=== PATIENT | male | born 1960 | race Caucasian/White ===

== ENCOUNTER 2021-05-19 09:46 | Inpatient (IN) | payer MEDICAID ==
--- NOTE | 2021-05-19 11:10 | EDM.PDOC ---
ED HPI GENERAL MEDICAL PROBLEM - General Chief Complaint: Respiratory Problem Stated Complaint: [facility] Time Seen by Provider: 05/19/21 11:04 Source of Information: Reports: EMS, [facility] Records - History of Present Illness INITIAL COMMENTS - FREE TEXT/NARRATIVE: ptt is a resident at [facility] and has been covid positive since May 12. He has not been maintaining his o2 sats and was sent in for that reason. Onset: Gradual, Other (pt became covid positive May 12. ) Duration: Day(s): Location: Reports: Chest Associated Symptoms: Reports: Cough, Shortness of Breath, Other (low o2 sats. 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 - Related Data Allergies Allergy/AdvReac Type Severity Reaction Status Date / Time No Known Allergies Allergy Verified 05/19/21 10:11 Home Meds: Home Meds Acetaminophen 650 mg PO Q4H PRN 05/19/21 [History] Baclofen 10 mg PO BEDTIME 05/19/21 [History] Gabapentin [Neurontin] 100 mg PO TID 05/19/21 [History] Loperamide [Imodium] 2 mg PO Q6H PRN 05/19/21 [History] Zinc Oxide [Zinc Oxide 20% Oint] 1 applic TOP ASDIRECTED PRN 05/19/21 [History] Past Medical History Cardiovascular History: Reports: CAD, High Cholesterol, Hypertension, [place] Gastrointestinal History: Reports: Other (See Below) Other Gastrointestinal History: Cryptosporidiosis Musculoskeletal History: Reports: Arthritis, Back Pain, Chronic, RA Neurological History: Reports: CVA Psychiatric History: Reports: Anxiety, Depression Social & Family History - Tobacco Use Tobacco Use Status *Q: Former Tobacco User Used Tobacco, but Quit: Yes Month/Year Tobacco Last Used: unknown - Caffeine Use Caffeine Use: Reports: None - Recreational Drug Use Recreational Drug Use: No ED ROS GENERAL - Review of Systems Review Of Systems: See Below Constitutional: Reports: Fever, Chills HEENT: Reports: No Symptoms Respiratory: Reports: Shortness of Breath, Other (lowo2 sats. ) Cardiovascular: Reports: No Symptoms Endocrine: Reports: No Symptoms GI/Abdominal: Reports: No Symptoms : Reports: No Symptoms Musculoskeletal: Reports: No Symptoms ED EXAM, GENERAL - Physical Exam Exam: See Below Free Text/Narrative:: pt was sent from [facility] and they had noted that he was not maintaining his o2 sats. He had a positive covid on May 12. He was seen by the physian that makes rounds but no treatment has been given. He has not had the monoclonal therapy. Exam Limited By: Other (pt does not communicate well-- he is post cva.) General Appearance: Alert, Anxious, Mild Distress Ears: Normal TMs Nose: Normal Inspection Throat/Mouth: Normal Inspection Head: Atraumatic Neck: Normal Inspection Respiratory/Chest: No Respiratory Distress Cardiovascular: Regular Rate, Rhythm GI/Abdominal: Soft, Non-Tender (Male) Exam: Deferred Rectal (Males) Exam: Deferred Back Exam: Normal Inspection Extremities: Normal Inspection Neurological: Alert, Other (pt does not communicate well. ) Course - Vital Signs Last Recorded V/S: Last Vital Signs Temp 37.7 C 05/19/21 10:23 Pulse 80 05/19/21 11:45 Resp 18 05/19/21 10:23 BP 143/89 H 05/19/21 11:45 Pulse Ox 93 L 05/19/21 11:45 - Orders/Labs/Meds Orders: Active Orders 24 hr Category Date Time Status DD [D-DIMER QUANTITATIVE] [COAG] Stat Lab 05/19/21 11:46 Received UA W/MICROSCOPIC [URIN] Urgent Lab 05/19/21 10:49 Ordered Labs: Laboratory Tests 05/19/21 05/19/21 05/19/21 Range/Units 11:07 11:07 11:46 WBC 5.0 (4.5-11.0) K/uL RBC 4.92 (4.30-5.90) M/uL Hgb 11.9 L (12.0-15.0) g/dL Hct 37.7 L (40.0-54.0) % MCV 77 L (80-98) fL MCH 24 L (27-31) pg MCHC 32 (32-36) % Plt Count 164 (150-400) K/uL Neut % (Auto) 74.8 H (36-66) % Lymph % (Auto) 13.4 L (24-44) % Towner % (Auto) 11.6 H (2-6) % Eos % (Auto) 0.0 L (2-4) % Baso % (Auto) 0.2 (0-1) % Sodium 137 L (140-148) mmol/L Potassium 4.0 (3.6-5.2) mmol/L Chloride 102 (100-108) mmol/L Carbon Dioxide 21 (21-32) mmol/L Anion Gap 18.0 H (5.0-14.0) mmol/L BUN 26 H (7-18) mg/dL Creatinine 0.9 (0.8-1.3) mg/dL Est Cr Clr Drug Dosing 82.95 mL/min Estimated GFR (MDRD) > 60 (>60) Glucose 101 (74-106) mg/dL Calcium 8.1 L (8.5-10.1) mg/dL Total Bilirubin 0.3 (0.2-1.0) mg/dL AST 91 H (15-37) U/L ALT 66 (12-78) U/L Alkaline Phosphatase 65 (46-116) U/L C-Reactive Protein 17.63 H (0.0-0.3) mg/dL Total Protein 7.2 (6.4-8.2) g/dL Albumin 2.1 L (3.4-5.0) g/dL Globulin 5.1 H (2.3-3.5) g/dL Albumin/Globulin Ratio 0.4 L (1.2-2.2) - Re-Assessments/Exams Free Text/Narrative Re-Assessment/Exam: 05/19/21 12:20 pt has a ddimer over 2000 and his crp is over 17. His other labs look good. Pt is requiring 2-3 liters of o2 to maintain his sats in the low 90s. Will plan to admit the pt. Departure - Departure Time of Disposition: 12:22 Disposition: Admitted As Inpatient 65 Condition: Fair Clinical Impression: COVID-19, Viral pneumonia, Low O2 saturation - Discharge Information Referrals: PCP,None [Primary Care Provider] - Forms: ED Department Discharge Sepsis Event Note (ED) - Evaluation Sepsis Screening Result: No Definite Risk - Focused Exam Vital Signs: Vital Signs Temp Pulse Resp BP Pulse Ox 05/19/21 11:45 80 143/89 H 93 L 05/19/21 11:15 85 145/92 H 89 L 05/19/21 10:30 85 92 L 05/19/21 10:23 37.7 C 80 18 139/86 87 L 05/19/21 09:46 89 18 142/86 H 90 L - My Orders Last 24 Hours: My Active Orders 05/19/21 10:49 UA W/MICROSCOPIC [URIN] Urgent 05/19/21 11:46 DD [D-DIMER QUANTITATIVE] [COAG] Stat - Assessment/Plan Last 24 Hours: My Active Orders 05/19/21 10:49 UA W/MICROSCOPIC [URIN] Urgent 05/19/21 11:46 DD [D-DIMER QUANTITATIVE] [COAG] Stat
--- NOTE | 2021-05-19 11:43 | CRLCR ---
For Patients: As a result of the Cures Act, medical imaging exams and procedure reports are released immediately into your electronic medical record. You may view this report before your referring provider. If you have questions, please contact your health care provider. HISTORY: COVID positive. TECHNIQUE: One view chest. COMPARISON: No prior. FINDINGS: There are patchy bilateral lung infiltrates compatible with pneumonia and fairly typical COVID-19 pneumonia. There is no pneumothorax or pleural effusion. Cardiac size within normal limits. Pulmonary vasculature within normal limits. Degenerative changes of the spine. IMPRESSION: Bilateral lung infiltrates which appear typical for COVID-19 pneumonia. Dictated by Steven Rodriguez MD @ 05/19/2021 11:41:28 AM Dictated by: Steven Rodriguez MD @ 05/19/2021 11:41:34 (Electronically Signed)
--- NOTE | 2021-05-19 14:19 | PCM.HP.2 ---
H&P History of Present Illness - General Date of Service: 05/19/21 Admit Problem/Dx: Admission Diagnosis/Problem Admission Diagnosis/Problem Pneumonia Source of Information: Patient, Provider History Limitations: Reports: No Limitations - History of Present Illness Initial Comments - Free Text/Narative: CC: covid + HPI: Garcia presents to the emergency room today from [facility]. He was diagnosed with a Covid infection few days ago on May 12. He was noted to be hypoxic today. He has been declining to take his medications the last few days. During my evaluation today we were able to communicate mostly via yes and no questions though he was able to provide some oral answers. He does not endorse headache, chest pain, abdominal pain or nausea. He feels a little short of breath and has an occasional cough. He does not think he has had any fevers. He is not aware of any sick contacts. No history of lung problems. No change in bowel or bladder habits. No sore throat or runny nose. No change in taste or smell that he has noticed. Work-up in the emergency room was most notable for mild hypoxia requiring 2 L of supplemental oxygen. Chest x-ray had only mild patchy changes. D-dimer is over 2000 and CRP was 17. Given his hypoxia he will be admitted for further management of Covid pneumonia. - Related Data Allergies/Adverse Reactions: Allergies Allergy/AdvReac Type Severity Reaction Status Date / Time No Known Allergies Allergy Verified 05/19/21 10:11 Home Medications: Home Meds Acetaminophen 650 mg PO Q4H PRN 05/19/21 [History] Baclofen 10 mg PO BEDTIME 05/19/21 [History] Gabapentin [Neurontin] 100 mg PO TID 05/19/21 [History] Loperamide [Imodium] 2 mg PO Q6H PRN 05/19/21 [History] Zinc Oxide [Zinc Oxide 20% Oint] 1 applic TOP ASDIRECTED PRN 05/19/21 [History] Past Medical History Cardiovascular History: Reports: CAD, High Cholesterol, Hypertension, [place] Gastrointestinal History: Reports: Other (See Below) Other Gastrointestinal History: Cryptosporidiosis Musculoskeletal History: Reports: Arthritis, Back Pain, Chronic, RA Neurological History: Reports: CVA Psychiatric History: Reports: Anxiety, Depression Social & Family History - Family History Cardiac: Denies: CAD - Tobacco Use Tobacco Use Status *Q: Former Tobacco User Used Tobacco, but Quit: Yes Month/Year Tobacco Last Used: unknown - Caffeine Use Caffeine Use: Reports: None - Recreational Drug Use Recreational Drug Use: No H&P Review of Systems - Review of Systems: Review Of Systems: See Below Free Text/Narrative: A complete 12 point review of systems was obtained. Pertinent positives and negatives are noted in the history of present illness. All other systems were reviewed and were negative except as noted. Exam - Exam Exam: See Below - Vital Signs Vital Signs: Last Vital Signs Temp 37.7 C 05/19/21 10:23 Pulse 80 05/19/21 11:45 Resp 18 05/19/21 10:23 BP 143/89 H 05/19/21 11:45 Pulse Ox 93 L 05/19/21 11:45 Weight: 68.039 kg - Exam Quality Assessment: Supplemental Oxygen General: Alert, Oriented, Cooperative. No: Mild Distress HEENT: Conjunctiva Clear, Scleral Icterus. No: Mucosa Moist & [place] (dry) Neck: Supple, Trachea Midline. No: Lymphadenopathy Lungs: Normal Respiratory Effort, Crackles (mild both lung bases), Wheezing (mild diffuse mid to end exp wheezing L>R) Cardiovascular: Regular Rate, Regular Rhythm. No: Systolic Murmur GI/Abdominal Exam: Normal Bowel Sounds, Soft, Non-Tender, No Distention Extremities: No Pedal Edema. No: Increased Warmth Peripheral Pulses: 2+: Dorsalis Pedis (L), Dorsalis Pedis (R) Skin: Warm, Dry Neuro Extensive - Mental Status: Alert, Nl Response to Commands Neuro Extensive - Motor, Sensory, Reflexes: Dysarthria. No: Tremor Psychiatric: Alert, Normal Affect - Patient Data Lab Results Last 24 hrs: Laboratory Results - last 24 hr 05/19/21 05/19/21 05/19/21 Range/Units 11:07 11:07 11:46 WBC 5.0 (4.5-11.0) K/uL RBC 4.92 (4.30-5.90) M/uL Hgb 11.9 L (12.0-15.0) g/dL Hct 37.7 L (40.0-54.0) % MCV 77 L (80-98) fL MCH 24 L (27-31) pg MCHC 32 (32-36) % Plt Count 164 (150-400) K/uL Neut % (Auto) 74.8 H (36-66) % Lymph % (Auto) 13.4 L (24-44) % Worth % (Auto) 11.6 H (2-6) % Eos % (Auto) 0.0 L (2-4) % Baso % (Auto) 0.2 (0-1) % D-Dimer, Quantitative (0.0-500.0) ng/mL Sodium 137 L (140-148) mmol/L Potassium 4.0 (3.6-5.2) mmol/L Chloride 102 (100-108) mmol/L Carbon Dioxide 21 (21-32) mmol/L Anion Gap 18.0 H (5.0-14.0) mmol/L BUN 26 H (7-18) mg/dL Creatinine 0.9 (0.8-1.3) mg/dL Est Cr Clr Drug Dosing 82.95 mL/min Estimated GFR (MDRD) > 60 (>60) Glucose 101 (74-106) mg/dL Calcium 8.1 L (8.5-10.1) mg/dL Total Bilirubin 0.3 (0.2-1.0) mg/dL AST 91 H (15-37) U/L ALT 66 (12-78) U/L Alkaline Phosphatase 65 (46-116) U/L C-Reactive Protein 17.63 H (0.0-0.3) mg/dL Total Protein 7.2 (6.4-8.2) g/dL Albumin 2.1 L (3.4-5.0) g/dL Globulin 5.1 H (2.3-3.5) g/dL Albumin/Globulin Ratio 0.4 L (1.2-2.2) 05/19/21 Range/Units 11:46 WBC (4.5-11.0) K/uL RBC (4.30-5.90) M/uL Hgb (12.0-15.0) g/dL Hct (40.0-54.0) % MCV (80-98) fL MCH (27-31) pg MCHC (32-36) % Plt Count (150-400) K/uL Neut % (Auto) (36-66) % Lymph % (Auto) (24-44) % Worth % (Auto) (2-6) % Eos % (Auto) (2-4) % Baso % (Auto) (0-1) % D-Dimer, Quantitative 2105.86 H (0.0-500.0) ng/mL Sodium (140-148) mmol/L Potassium (3.6-5.2) mmol/L Chloride (100-108) mmol/L Carbon Dioxide (21-32) mmol/L Anion Gap (5.0-14.0) mmol/L BUN (7-18) mg/dL Creatinine (0.8-1.3) mg/dL Est Cr Clr Drug Dosing mL/min Estimated GFR (MDRD) (>60) Glucose (74-106) mg/dL Calcium (8.5-10.1) mg/dL Total Bilirubin (0.2-1.0) mg/dL AST (15-37) U/L ALT (12-78) U/L Alkaline Phosphatase (46-116) U/L C-Reactive Protein (0.0-0.3) mg/dL Total Protein (6.4-8.2) g/dL Albumin (3.4-5.0) g/dL Globulin (2.3-3.5) g/dL Albumin/Globulin Ratio (1.2-2.2) Result Diagrams: 05/19/21 11:07 05/19/21 11:07 Imaging Impressions Last 24 hrs: cxr-image personally reviewed-there are hazy bilateral patchy infiltrates L>R. Heart size is normal. No mass or effusion. Sepsis Event Note - Evaluation Sepsis Screening Result: No Definite Risk - Focused Exam Vital Signs: Vital Signs Temp Pulse Resp BP Pulse Ox 05/19/21 11:45 80 143/89 H 93 L 05/19/21 11:15 85 145/92 H 89 L 05/19/21 10:30 85 92 L 05/19/21 10:23 37.7 C 80 18 139/86 87 L 05/19/21 09:46 89 18 142/86 H 90 L *Q Meaningful Use (ADM) - VTE Risk Assess *Q Each Risk Factor Represents 1 Point: Serious lung disease including pneumonia Total Score 1 Point Risk Factors: 1 Each Risk Factor Represents 2 Points: Age 60 - 74 Years Total Score 2 Point Risk Factors: 2 Each Risk Factor Represents 3 Points: None Total Score 3 Point Risk Factors: 0 Each Risk Factor Represents 5 Points: None Total Score 5 Point Risk Factors: 0 Venous Thromboembolism Risk Factor Score *Q: 3 - Problem List (1) COVID-19 SNOMED Code(s): 233864061 ICD Code: U07.1 - COVID-19 Status: Acute Current Visit: Yes (2) Acute respiratory failure due to COVID-19 SNOMED Code(s): 858695894 ICD Code: U07.1 - COVID-19; J96.00 - ACUTE RESPIRATORY FAILURE, UNSP W HYPOXIA OR HYPERCAPNIA Status: Acute Current Visit: Yes (3) History of CVA (cerebrovascular accident) without residual deficits Status: Chronic Current Visit: Yes Problem List Initiated/Reviewed/Updated: Yes Orders Last 24hrs: Active Orders 24 hr Category Date Time Status Patient Status Manage Transfer [TRANSFER] Routine ADT 05/19/21 14:11 Ordered UA W/MICROSCOPIC [URIN] Urgent Lab 05/19/21 10:49 Ordered dexAMETHasone [Decadron] Med 05/19/21 14:15 Active 6 mg IVPUSH Q24H Resuscitation Status Routine Resus Stat 05/19/21 14:12 Ordered Medication Orders Dexamethasone (Dexamethasone 4 Mg/Ml Sdv) 6 mg IVPUSH Q24H TRAVIS Assessment/Plan Comment:: ASSESSMENT AND PLAN - COVID-19 pneumonia-complicated by acute respiratory failure with hypoxia. Moderate elevation of D-dimer and CRP. Currently requiring 2 L of oxygen. He is a former smoker but otherwise does not have impressive risk factors for progression to severe disease. He was agreeable to utilizing both dexamethasone and remdesivir. Currently afebrile. -Dexamethasone 6 mg every 24 hours (day1) -Remdesivir x5 days -Enoxaparin every 24 hours -Symptomatic management of cough -Supplement oxygen, wean as able -Covid isolation (symptom onset/positive test ) History of cerebrovascular disease-history of a stroke that was quite debilitating and left hip with speech difficulties. He has been a resident at the assisted living since his stroke. -Medical management Maintenance issues - -DVT prophylaxis-enoxaparin -GI prophylaxis-PPI -Nutrition-mechanical soft -Fortune catheter-not indicated CODE STATUS -DNR/DNI Admission justification -this patient will be admitted for inpatient services and is medically appropriate meeting medical necessity for inpatient admission as outlined in my documentation. I reasonably expect the patient will require inpatient services that span a period time over 2 midnights. I reasonably expect this patient to be discharged or transferred within 96 hours after admission to the [facility]. Disposition -I anticipate discharge home after the hospital stay Jason Franklin M.D. - Mortality Measure Prognosis:: Good
[2021-05-19] MEDS ORDERED: Melatonin 3 MG Tab PO PRN (15:46)
[2021-05-19] MEDS ORDERED: LORazepam 2 MG/ML SDV IVPUSH PRN (15:46)
[2021-05-19] MEDS ORDERED: guaiFENesin/Dextromethorphan 100-10 MG/5 ML Soln 10 ML Cup PO PRN (15:46)
[2021-05-19] MEDS ORDERED: Ondansetron 4 MG Tab.DIS PO PRN (15:46)
[2021-05-19] MEDS ORDERED: Magnesium Hydroxide 400 MG/5 ML Susp 30 ML Cup PO PRN (15:46)
[2021-05-19] MEDS ORDERED: Loperamide 2 MG Cap PO PRN (15:46)
[2021-05-19] MEDS ORDERED: Acetaminophen 325 MG Tab PO PRN (15:46)
[2021-05-19] MEDS ORDERED: Benzonatate 100 MG Cap PO PRN (15:46)
[2021-05-19] MEDS ORDERED: Ondansetron 4 MG/2 ML SDV IV PRN (15:46)
[2021-05-19] MEDS: Dexamethasone 4 MG/ML SDV IVPUSH SCH (16:08)
[2021-05-19] MEDS ORDERED: REMDESIVIR 200 MG in Sodium Chloride 0.9% 250 ML IV ONE (17:00)
[2021-05-19] MEDS: Enoxaparin 40 MG/0.4 ML Syringe SUBCUT SCH ×2 (18:21→18:24)
[2021-05-19] MEDS: Gabapentin 100 MG Cap PO SCH (20:48)
[2021-05-19] MEDS: Baclofen 10 MG Tab PO SCH (20:48)
[2021-05-20] MEDS: Gabapentin 100 MG Cap PO SCH ×3 (09:21→20:18)
[2021-05-20] MEDS: Pantoprazole 40 MG Tab.CR PO SCH (09:21)
--- NOTE | 2021-05-20 10:51 | PCM.PN ---
- General Info Date of Service: 05/20/21 Subjective Update: No acute events overnight. Oxygenation is stable and he does continue to require 3 L of supplemental oxygen. He was declining to take medications last night and again this morning including enoxaparin. Does not report pain. He reports his cough is fairly minimal. Appetite is okay. No fevers. Functional Status: Reports: Pain Controlled, Tolerating Diet - Patient Data Vitals - Most Recent: Last Vital Signs Temp 36.6 C 05/20/21 07:29 Pulse 73 05/20/21 07:29 Resp 18 05/20/21 07:29 BP 132/88 05/20/21 07:29 Pulse Ox 92 L 05/20/21 07:29 Weight - Most Recent: 68.039 kg I&O - Last 24 Hours: Intake & Output 05/19/21 05/20/21 05/20/21 22:59 06:59 14:59 Intake Total 240 Balance 240 Lab Results Last 24 Hours: Laboratory Results - last 24 hr 05/19/21 05/19/21 05/19/21 Range/Units 11:07 11:07 11:46 WBC 5.0 (4.5-11.0) K/uL RBC 4.92 (4.30-5.90) M/uL Hgb 11.9 L (12.0-15.0) g/dL Hct 37.7 L (40.0-54.0) % MCV 77 L (80-98) fL MCH 24 L (27-31) pg MCHC 32 (32-36) % Plt Count 164 (150-400) K/uL Neut % (Auto) 74.8 H (36-66) % Lymph % (Auto) 13.4 L (24-44) % [place] % (Auto) 11.6 H (2-6) % Eos % (Auto) 0.0 L (2-4) % Baso % (Auto) 0.2 (0-1) % D-Dimer, Quantitative (0.0-500.0) ng/mL Sodium 137 L (140-148) mmol/L Potassium 4.0 (3.6-5.2) mmol/L Chloride 102 (100-108) mmol/L Carbon Dioxide 21 (21-32) mmol/L Anion Gap 18.0 H (5.0-14.0) mmol/L BUN 26 H (7-18) mg/dL Creatinine 0.9 (0.8-1.3) mg/dL Est Cr Clr Drug Dosing 82.95 mL/min Estimated GFR (MDRD) > 60 (>60) Glucose 101 (74-106) mg/dL Calcium 8.1 L (8.5-10.1) mg/dL Total Bilirubin 0.3 (0.2-1.0) mg/dL AST 91 H (15-37) U/L ALT 66 (12-78) U/L Alkaline Phosphatase 65 (46-116) U/L Troponin I (0.000-0.056) ng/mL C-Reactive Protein 17.63 H (0.0-0.3) mg/dL Total Protein 7.2 (6.4-8.2) g/dL Albumin 2.1 L (3.4-5.0) g/dL Globulin 5.1 H (2.3-3.5) g/dL Albumin/Globulin Ratio 0.4 L (1.2-2.2) 05/19/21 05/20/21 05/20/21 Range/Units 11:46 04:20 04:20 WBC 3.9 L (4.5-11.0) K/uL RBC 5.59 (4.30-5.90) M/uL Hgb 13.7 (12.0-15.0) g/dL Hct 43.3 (40.0-54.0) % MCV 78 L (80-98) fL MCH 25 L (27-31) pg MCHC 32 (32-36) % Plt Count 191 (150-400) K/uL Neut % (Auto) (36-66) % Lymph % (Auto) (24-44) % [place] % (Auto) (2-6) % Eos % (Auto) (2-4) % Baso % (Auto) (0-1) % D-Dimer, Quantitative 2105.86 H (0.0-500.0) ng/mL Sodium 140 (140-148) mmol/L Potassium 4.8 (3.6-5.2) mmol/L Chloride 104 (100-108) mmol/L Carbon Dioxide 21 (21-32) mmol/L Anion Gap 14.8 H (5.0-14.0) mmol/L BUN 29 H (7-18) mg/dL Creatinine 1.0 (0.8-1.3) mg/dL Est Cr Clr Drug Dosing 74.65 mL/min Estimated GFR (MDRD) > 60 (>60) Glucose 123 H (74-106) mg/dL Calcium 8.7 (8.5-10.1) mg/dL Total Bilirubin 0.3 (0.2-1.0) mg/dL AST 105 H (15-37) U/L ALT 84 H (12-78) U/L Alkaline Phosphatase 82 (46-116) U/L Troponin I < 0.017 (0.000-0.056) ng/mL C-Reactive Protein (0.0-0.3) mg/dL Total Protein 7.4 (6.4-8.2) g/dL Albumin 2.2 L (3.4-5.0) g/dL Globulin 5.2 H (2.3-3.5) g/dL Albumin/Globulin Ratio 0.4 L (1.2-2.2) Med Orders - Current: Current Medications Acetaminophen (Acetaminophen 325 Mg Tab) 650 mg PO Q4H PRN PRN Reason: Pain (Mild 1-3)/fever Baclofen (Baclofen 10 Mg Tab) 10 mg PO BEDTIME [facility] Last Admin: 05/19/21 20:48 Dose: Not Given Documented by: Benzonatate (Benzonatate 100 Mg Cap) 100 mg PO TID PRN PRN Reason: Cough Dexamethasone (Dexamethasone 4 Mg/Ml Sdv) 6 mg IVPUSH Q24H [facility] Last Admin: 05/19/21 16:08 Dose: 6 mg Documented by: Enoxaparin Sodium (Enoxaparin 40 Mg/0.4 Ml Syringe) 40 mg SUBCUT Q24H [facility] Last Admin: 05/19/21 18:24 Dose: Not Given Documented by: Gabapentin (Gabapentin 100 Mg Cap) 100 mg PO TID [facility] Last Admin: 05/20/21 09:21 Dose: Not Given Documented by: Guaifenesin/Dextromethorphan (Guaifenesin/Dextromethorphan 100-10 Mg/5 Ml Soln 10 Ml Cup) 10 ml PO Q4H PRN PRN Reason: Cough Remdesivir 100 mg/ Sodium (Chloride) 100 mls @ 100 mls/hr IV Q24H [facility] Stop: 05/23/21 17:59 Loperamide HCl (Loperamide 2 Mg Cap) 2 mg PO Q6H PRN PRN Reason: Diarrhea Lorazepam (Lorazepam 2 Mg/Ml Sdv) 0.5 mg IVPUSH Q4H PRN PRN Reason: Nausea/Vomiting Magnesium Hydroxide (Magnesium Hydroxide 400 Mg/5 Ml Susp 30 Ml Cup) 30 ml PO Q12H PRN PRN Reason: Constipation Melatonin (Melatonin 3 Mg Tab) 9 mg PO BEDTIME PRN PRN Reason: Sleep Ondansetron HCl (Ondansetron 4 Mg/2 Ml Sdv) 4 mg IV Q6H PRN PRN Reason: Nausea/Vomiting Ondansetron HCl (Ondansetron 4 Mg Tab.Dis) 4 mg PO Q6H PRN PRN Reason: Nausea able to take PO Pantoprazole Sodium (Pantoprazole 40 Mg Tab.Cr) 40 mg PO ACBREAKFAST [facility] Last Admin: 05/20/21 09:21 Dose: Not Given Documented by: Senna/Docusate Sodium (Docusate Sodium/Sennosides 50-8.6 Mg Tab) 1 tab PO BID PRN PRN Reason: Constipation Discontinued Medications Remdesivir 200 mg/ Sodium (Chloride) 250 mls @ 250 mls/hr IV ONETIME ONE Stop: 05/19/21 17:59 Last Admin: 05/19/21 18:21 Dose: 250 mls/hr Documented by: - Exam Quality Assessment: Supplemental Oxygen General: Alert, Cooperative, No Acute Distress Lungs: Normal Respiratory Effort, Crackles (few both bases) Cardiovascular: Regular Rate, Regular Rhythm - Patient Data Lab Results Last 24 hrs: Laboratory Results - last 24 hr 05/19/21 05/19/21 05/19/21 Range/Units 11:07 11:07 11:46 WBC 5.0 (4.5-11.0) K/uL RBC 4.92 (4.30-5.90) M/uL Hgb 11.9 L (12.0-15.0) g/dL Hct 37.7 L (40.0-54.0) % MCV 77 L (80-98) fL MCH 24 L (27-31) pg MCHC 32 (32-36) % Plt Count 164 (150-400) K/uL Neut % (Auto) 74.8 H (36-66) % Lymph % (Auto) 13.4 L (24-44) % [place] % (Auto) 11.6 H (2-6) % Eos % (Auto) 0.0 L (2-4) % Baso % (Auto) 0.2 (0-1) % D-Dimer, Quantitative (0.0-500.0) ng/mL Sodium 137 L (140-148) mmol/L Potassium 4.0 (3.6-5.2) mmol/L Chloride 102 (100-108) mmol/L Carbon Dioxide 21 (21-32) mmol/L Anion Gap 18.0 H (5.0-14.0) mmol/L BUN 26 H (7-18) mg/dL Creatinine 0.9 (0.8-1.3) mg/dL Est Cr Clr Drug Dosing 82.95 mL/min Estimated GFR (MDRD) > 60 (>60) Glucose 101 (74-106) mg/dL Calcium 8.1 L (8.5-10.1) mg/dL Total Bilirubin 0.3 (0.2-1.0) mg/dL AST 91 H (15-37) U/L ALT 66 (12-78) U/L Alkaline Phosphatase 65 (46-116) U/L Troponin I (0.000-0.056) ng/mL C-Reactive Protein 17.63 H (0.0-0.3) mg/dL Total Protein 7.2 (6.4-8.2) g/dL Albumin 2.1 L (3.4-5.0) g/dL Globulin 5.1 H (2.3-3.5) g/dL Albumin/Globulin Ratio 0.4 L (1.2-2.2) 05/19/21 05/20/21 05/20/21 Range/Units 11:46 04:20 04:20 WBC 3.9 L (4.5-11.0) K/uL RBC 5.59 (4.30-5.90) M/uL Hgb 13.7 (12.0-15.0) g/dL Hct 43.3 (40.0-54.0) % MCV 78 L (80-98) fL MCH 25 L (27-31) pg MCHC 32 (32-36) % Plt Count 191 (150-400) K/uL Neut % (Auto) (36-66) % Lymph % (Auto) (24-44) % [place] % (Auto) (2-6) % Eos % (Auto) (2-4) % Baso % (Auto) (0-1) % D-Dimer, Quantitative 2105.86 H (0.0-500.0) ng/mL Sodium 140 (140-148) mmol/L Potassium 4.8 (3.6-5.2) mmol/L Chloride 104 (100-108) mmol/L Carbon Dioxide 21 (21-32) mmol/L Anion Gap 14.8 H (5.0-14.0) mmol/L BUN 29 H (7-18) mg/dL Creatinine 1.0 (0.8-1.3) mg/dL Est Cr Clr Drug Dosing 74.65 mL/min Estimated GFR (MDRD) > 60 (>60) Glucose 123 H (74-106) mg/dL Calcium 8.7 (8.5-10.1) mg/dL Total Bilirubin 0.3 (0.2-1.0) mg/dL AST 105 H (15-37) U/L ALT 84 H (12-78) U/L Alkaline Phosphatase 82 (46-116) U/L Troponin I < 0.017 (0.000-0.056) ng/mL C-Reactive Protein (0.0-0.3) mg/dL Total Protein 7.4 (6.4-8.2) g/dL Albumin 2.2 L (3.4-5.0) g/dL Globulin 5.2 H (2.3-3.5) g/dL Albumin/Globulin Ratio 0.4 L (1.2-2.2) Result Diagrams: 05/20/21 04:20 05/20/21 04:20 Sepsis Event Note - Evaluation Sepsis Screening Result: No Definite Risk - Focused Exam Vital Signs: Vital Signs Temp Pulse Resp BP Pulse Ox 05/20/21 07:29 36.6 C 73 18 132/88 92 L 05/20/21 07:22 94 L 05/20/21 03:00 36.6 C 67 18 124/89 91 L 05/20/21 01:30 90 L 05/19/21 23:00 36.5 C 66 16 131/85 95 - Problem List & Annotations (1) COVID-19 SNOMED Code(s): 284308951 Code(s): U07.1 - COVID-19 Status: Acute Current Visit: Yes (2) Acute respiratory failure due to COVID-19 SNOMED Code(s): 899829334 Code(s): U07.1 - COVID-19; J96.00 - ACUTE RESPIRATORY FAILURE, UNSP W HYPOXIA OR HYPERCAPNIA Status: Acute Current Visit: Yes (3) History of CVA (cerebrovascular accident) without residual deficits Status: Chronic Current Visit: Yes - Problem List Review Problem List Initiated/Reviewed/Updated: Yes - My Orders Last 24 Hours: My Active Orders 05/19/21 14:12 Resuscitation Status Routine 05/19/21 14:15 dexAMETHasone [Decadron] 6 mg IVPUSH Q24H 05/19/21 15:46 Acetaminophen [TylenoL] 650 mg PO Q4H PRN Benzonatate [Tessalon Perles] 100 mg PO TID PRN Dextromethorphan/guaiFENesin [Robitussin DM] 10 ml PO Q4H PRN Docusate Sodium/Sennosides [Senna Plus] 1 tab PO BID PRN LORazepam [Ativan] 0.5 mg IVPUSH Q4H PRN Loperamide [Imodium] 2 mg PO Q6H PRN Magnesium Hydroxide [Milk of Magnesia] 30 ml PO Q12H PRN Melatonin 9 mg PO BEDTIME PRN Ondansetron [Zofran ODT] 4 mg PO Q6H PRN Ondansetron [Zofran] 4 mg IV Q6H PRN 05/19/21 15:46 Patient Status [ADT] Routine Intake and Output [RC] QSHIFT Notify Provider Vital Signs [RC] ASDIRECTED Nurse Communication: Isolation [RC] ASDIRECTED Oxygen Therapy [RC] .PRN Pulse Oximetry [RC] CONTINUOUS Up With Assistance [RC] ASDIRECTED VTE/DVT Education [RC] Per Unit Routine Vital Signs [RC] Q4H Isolation [COMM] Routine 05/19/21 Dinner Mechanical Soft Diet [DIET] Enoxaparin [Lovenox] 40 mg SUBCUT Q24H 05/19/21 21:00 Baclofen [Lioresal] 10 mg PO BEDTIME Gabapentin [Neurontin] 100 mg PO TID 05/20/21 07:30 Pantoprazole [ProTONIX] 40 mg PO ACBREAKFAST 05/20/21 17:00 Remdesivir 100 mg Sodium Chloride 0.9% [Normal Saline] 100 ml IV Q24H 05/21/21 05:00 C-REACTIVE PROTEIN [CHEM] Timed COMPREHENSIVE METABOLIC PN,CMP [CHEM] Timed D-DIMER QUANTITATIVE [COAG] Timed - Plan Plan:: ASSESSMENT AND PLAN - COVID-19 pneumonia-complicated by acute respiratory failure with hypoxia. Currently requiring 3 L of oxygen. Clinically he looks well otherwise. No fevers. Tolerating treatment so far. -Dexamethasone 6 mg every 24 hours (day2) -Remdesivir x5 days -Enoxaparin every 24 hours -Symptomatic management of cough -Supplement oxygen, wean as able -Covid isolation (positive test May 12) History of cerebrovascular disease-history of a stroke that was quite debilitating and left him with speech difficulties and right-sided weakness. He has been a resident at the assisted living since his stroke. -Medical management Maintenance issues - -DVT prophylaxis-enoxaparin -GI prophylaxis-PPI -Nutrition-mechanical soft Disposition -I anticipate discharge back to his assisted living after the hospital stay Jason Franklin M.D.
[2021-05-20] MEDS: Dexamethasone 4 MG/ML SDV IVPUSH SCH (15:23)
[2021-05-20] MEDS: REMDESIVIR 100 MG in Sodium Chloride 0.9% 100 ML IV SCH (18:18)
[2021-05-20] MEDS: Enoxaparin 40 MG/0.4 ML Syringe SUBCUT SCH (18:22)
[2021-05-20] MEDS: Baclofen 10 MG Tab PO SCH (20:18)
[2021-05-21] MEDS: Gabapentin 100 MG Cap PO SCH ×3 (10:00→22:05)
[2021-05-21] MEDS: Pantoprazole 40 MG Tab.CR PO SCH (10:01)
--- NOTE | 2021-05-21 10:56 | PCM.PN ---
- General Info Date of Service: 05/21/21 Subjective Update: No acute events overnight. Patient did have a slight increase in his supplemental oxygen requirements and was up to 6 L last night. He declined laboratory studies this morning because he was tired of being poked. He does not endorse any pain. He does have an intermittent cough. He seems to be most frustrated with his living situation and does not want to go back to the assisted living facility. He wants to go home which she says [place] 500 miles away. Functional Status: Reports: Pain Controlled, Tolerating Diet - Review of Systems Pulmonary: Reports: Cough - Patient Data Vitals - Most Recent: Last Vital Signs Temp 36.1 C 05/21/21 07:05 Pulse 57 L 05/21/21 07:05 Resp 18 05/21/21 07:05 BP 131/84 05/21/21 07:05 Pulse Ox 91 L 05/21/21 07:55 Weight - Most Recent: 68.039 kg I&O - Last 24 Hours: Intake & Output 05/20/21 05/21/21 05/21/21 22:59 06:59 14:59 Intake Total 120 Balance 120 Med Orders - Current: Current Medications Acetaminophen (Acetaminophen 325 Mg Tab) 650 mg PO Q4H PRN PRN Reason: Pain (Mild 1-3)/fever Baclofen (Baclofen 10 Mg Tab) 10 mg PO BEDTIME [facility] Last Admin: 05/20/21 20:18 Dose: Not Given Documented by: Benzonatate (Benzonatate 100 Mg Cap) 100 mg PO TID PRN PRN Reason: Cough Dexamethasone (Dexamethasone 4 Mg/Ml Sdv) 6 mg IVPUSH Q24H [facility] Last Admin: 05/20/21 15:23 Dose: 6 mg Documented by: Enoxaparin Sodium (Enoxaparin 40 Mg/0.4 Ml Syringe) 40 mg SUBCUT Q24H [facility] Last Admin: 05/20/21 18:22 Dose: 40 mg Documented by: Gabapentin (Gabapentin 100 Mg Cap) 100 mg PO TID [facility] Last Admin: 05/21/21 10:00 Dose: 100 mg Documented by: Guaifenesin/Dextromethorphan (Guaifenesin/Dextromethorphan 100-10 Mg/5 Ml Soln 10 Ml Cup) 10 ml PO Q4H PRN PRN Reason: Cough Remdesivir 100 mg/ Sodium (Chloride) 100 mls @ 100 mls/hr IV Q24H [facility] Stop: 05/23/21 17:59 Last Admin: 05/20/21 18:18 Dose: 100 mls/hr Documented by: Loperamide HCl (Loperamide 2 Mg Cap) 2 mg PO Q6H PRN PRN Reason: Diarrhea Lorazepam (Lorazepam 2 Mg/Ml Sdv) 0.5 mg IVPUSH Q4H PRN PRN Reason: Nausea/Vomiting Magnesium Hydroxide (Magnesium Hydroxide 400 Mg/5 Ml Susp 30 Ml Cup) 30 ml PO Q12H PRN PRN Reason: Constipation Melatonin (Melatonin 3 Mg Tab) 9 mg PO BEDTIME PRN PRN Reason: Sleep Ondansetron HCl (Ondansetron 4 Mg/2 Ml Sdv) 4 mg IV Q6H PRN PRN Reason: Nausea/Vomiting Ondansetron HCl (Ondansetron 4 Mg Tab.Dis) 4 mg PO Q6H PRN PRN Reason: Nausea able to take PO Pantoprazole Sodium (Pantoprazole 40 Mg Tab.Cr) 40 mg PO ACBREAKFAST [facility] Last Admin: 05/21/21 10:01 Dose: 40 mg Documented by: Senna/Docusate Sodium (Docusate Sodium/Sennosides 50-8.6 Mg Tab) 1 tab PO BID PRN PRN Reason: Constipation Discontinued Medications Remdesivir 200 mg/ Sodium (Chloride) 250 mls @ 250 mls/hr IV ONETIME ONE Stop: 05/19/21 17:59 Last Admin: 05/19/21 18:21 Dose: 250 mls/hr Documented by: - Exam Quality Assessment: Supplemental Oxygen General: Alert, Oriented, Cooperative, No Acute Distress Lungs: Clear to Auscultation, Normal Respiratory Effort Cardiovascular: Regular Rate, Regular Rhythm GI/Abdominal Exam: Soft, No Distention Extremities: No Pedal Edema, Increased Warmth Skin: Warm, Dry Psy/Mental Status: Alert, Normal Affect - Patient Data Result Diagrams: 05/20/21 04:20 05/20/21 04:20 Sepsis Event Note - Evaluation Sepsis Screening Result: No Definite Risk - Focused Exam Vital Signs: Vital Signs Temp Pulse Resp BP Pulse Ox 05/21/21 07:55 91 L 05/21/21 07:05 36.1 C 57 L 18 131/84 88 L 05/21/21 03:41 90 L 05/21/21 02:46 36.1 C 62 16 136/85 88 L 05/21/21 02:19 96 05/20/21 23:00 36.6 C 88 16 127/90 91 L - Problem List & Annotations (1) COVID-19 SNOMED Code(s): 235259195 Code(s): U07.1 - COVID-19 Status: Acute Current Visit: Yes (2) Acute respiratory failure due to COVID-19 SNOMED Code(s): 483456541 Code(s): U07.1 - COVID-19; J96.00 - ACUTE RESPIRATORY FAILURE, UNSP W HYPOXIA OR HYPERCAPNIA Status: Acute Current Visit: Yes (3) History of CVA (cerebrovascular accident) without residual deficits Status: Chronic Current Visit: Yes - Problem List Review Problem List Initiated/Reviewed/Updated: Yes - My Orders Last 24 Hours: My Active Orders 05/20/21 17:00 Remdesivir 100 mg Sodium Chloride 0.9% [Normal Saline] 100 ml IV Q24H 05/21/21 05:00 C-REACTIVE PROTEIN [CHEM] Routine COMPREHENSIVE METABOLIC PN,CMP [CHEM] Routine D-DIMER QUANTITATIVE [COAG] Routine 05/21/21 10:55 CRP [C-REACTIVE PROTEIN] [CHEM] Timed D-DIMER QUANTITATIVE [COAG] Timed 05/22/21 05:00 CBC W/O DIFF,HEMOGRAM [HEME] Timed (1) COMPREHENSIVE METABOLIC PN,CMP [CHEM] Timed - Plan Plan:: ASSESSMENT AND PLAN - COVID-19 pneumonia-complicated by acute respiratory failure with hypoxia. Currently requiring 6 L of oxygen. Clinically he looks well. Declined labs this morning. We did discuss the importance of monitoring his clinical status with laboratory studies. He was agreeable to every other day. -Dexamethasone 6 mg every 24 hours (day3) -Remdesivir x5 days -Enoxaparin every 24 hours -Symptomatic management of cough -Supplement oxygen, wean as able -Covid isolation (positive test Oct 1) History of cerebrovascular disease-history of a stroke that was quite debilitating and left him with speech difficulties and right-sided weakness. He has been a resident at the assisted living since his stroke. He does not want to go back to his assisted living facility after the hospital stay. -Medical management Maintenance issues - -DVT prophylaxis-enoxaparin -GI prophylaxis-PPI -Nutrition-mechanical soft Disposition -I anticipate discharge back to his assisted living after the hospital stay Jason Franklin M.D.
[2021-05-21] MEDS: Dexamethasone 4 MG/ML SDV IVPUSH SCH (15:50)
[2021-05-21] MEDS: REMDESIVIR 100 MG in Sodium Chloride 0.9% 100 ML IV SCH (16:00)
[2021-05-21] MEDS: Enoxaparin 40 MG/0.4 ML Syringe SUBCUT SCH (16:00)
[2021-05-21] MEDS: Baclofen 10 MG Tab PO SCH (22:05)
[2021-05-22] MEDS: Gabapentin 100 MG Cap PO SCH ×3 (08:07→21:11)
[2021-05-22] MEDS: Pantoprazole 40 MG Tab.CR PO SCH (08:08)
[2021-05-22] MEDS: Enoxaparin 40 MG/0.4 ML Syringe SUBCUT SCH (17:16)
[2021-05-22] MEDS: Dexamethasone 4 MG/ML SDV IVPUSH SCH (17:59)
[2021-05-22] MEDS: REMDESIVIR 100 MG in Sodium Chloride 0.9% 100 ML IV SCH (17:59)
[2021-05-22] MEDS: Baclofen 10 MG Tab PO SCH (21:11)
--- NOTE | 2021-05-22 21:12 | PCM.PN ---
- General Info Date of Service: 05/22/21 Admission Dx/Problem (Free Text): Admission Diagnosis/Problem Admission Diagnosis/Problem Pneumonia Subjective Update: Mr. Deleon pulled out his IV today and was refusing all medications except for enoxaparin. I did ask if he would be willing to get a new IV to finish the last 2 doses of remdesivir and he said he would however we have been unable to to find a new site. He did not receive his remdesivir dose today. He did express frustration to me about his current physical status. Functional Status: Reports: Tolerating Diet, New Symptoms - Review of Systems General: Reports: No Symptoms HEENT: Reports: No Symptoms Pulmonary: Reports: Shortness of Breath, Wheezing Cardiovascular: Reports: No Symptoms Gastrointestinal: Reports: No Symptoms Genitourinary: Reports: No Symptoms Musculoskeletal: Reports: No Symptoms Skin: Reports: No Symptoms Neurological: Reports: Trouble Speaking, Weakness Psychiatric: Reports: Agitation - Patient Data Vitals - Most Recent: Last Vital Signs Temp 97.7 F 05/22/21 19:26 Pulse 58 L 05/22/21 19:26 Resp 16 05/22/21 19:26 BP 155/95 H 05/22/21 19:26 Pulse Ox 95 05/22/21 19:26 Weight - Most Recent: 150 lb 0.005 oz I&O - Last 24 Hours: Intake & Output 05/22/21 05/22/21 05/22/21 06:59 14:59 22:59 Intake Total 755 Balance 755 Lab Results Last 24 Hours: Laboratory Results - last 24 hr 05/22/21 05/22/21 Range/Units 04:30 04:30 WBC 7.7 (4.5-11.0) K/uL RBC 4.86 (4.30-5.90) M/uL Hgb 11.8 L (12.0-15.0) g/dL Hct 37.0 L (40.0-54.0) % MCV 76 L (80-98) fL MCH 24 L (27-31) pg MCHC 32 (32-36) % Plt Count 233 (150-400) K/uL Sodium 139 L (140-148) mmol/L Potassium 3.7 (3.6-5.2) mmol/L Chloride 103 (100-108) mmol/L Carbon Dioxide 22 (21-32) mmol/L Anion Gap 17.7 H (5.0-14.0) mmol/L BUN 30 H (7-18) mg/dL Creatinine 0.9 (0.8-1.3) mg/dL Est Cr Clr Drug Dosing 82.95 mL/min Estimated GFR (MDRD) > 60 (>60) Glucose 138 H (74-106) mg/dL Calcium 8.0 L (8.5-10.1) mg/dL Total Bilirubin 0.2 (0.2-1.0) mg/dL AST 58 H (15-37) U/L ALT 76 (12-78) U/L Alkaline Phosphatase 65 (46-116) U/L Total Protein 6.4 (6.4-8.2) g/dL Albumin 2.0 L (3.4-5.0) g/dL Globulin 4.4 H (2.3-3.5) g/dL Albumin/Globulin Ratio 0.5 L (1.2-2.2) Med Orders - Current: Current Medications Acetaminophen (Acetaminophen 325 Mg Tab) 650 mg PO Q4H PRN PRN Reason: Pain (Mild 1-3)/fever Last Admin: 05/21/21 13:43 Dose: 650 mg Documented by: Baclofen (Baclofen 10 Mg Tab) 10 mg PO BEDTIME [facility] Last Admin: 05/21/21 22:05 Dose: Not Given Documented by: Benzonatate (Benzonatate 100 Mg Cap) 100 mg PO TID PRN PRN Reason: Cough Dexamethasone (Dexamethasone 4 Mg/Ml Sdv) 6 mg IVPUSH Q24H [facility] Last Admin: 05/22/21 17:59 Dose: 6 mg Documented by: Enoxaparin Sodium (Enoxaparin 40 Mg/0.4 Ml Syringe) 40 mg SUBCUT Q24H [facility] Last Admin: 05/22/21 17:16 Dose: 40 mg Documented by: Gabapentin (Gabapentin 100 Mg Cap) 100 mg PO TID [facility] Last Admin: 05/22/21 14:15 Dose: 100 mg Documented by: Guaifenesin/Dextromethorphan (Guaifenesin/Dextromethorphan 100-10 Mg/5 Ml Soln 10 Ml Cup) 10 ml PO Q4H PRN PRN Reason: Cough Remdesivir 100 mg/ Sodium (Chloride) 100 mls @ 100 mls/hr IV Q24H [facility] Stop: 05/23/21 17:59 Last Admin: 05/22/21 17:59 Dose: 100 mls/hr Documented by: Loperamide HCl (Loperamide 2 Mg Cap) 2 mg PO Q6H PRN PRN Reason: Diarrhea Lorazepam (Lorazepam 2 Mg/Ml Sdv) 0.5 mg IVPUSH Q4H PRN PRN Reason: Nausea/Vomiting Magnesium Hydroxide (Magnesium Hydroxide 400 Mg/5 Ml Susp 30 Ml Cup) 30 ml PO Q12H PRN PRN Reason: Constipation Melatonin (Melatonin 3 Mg Tab) 9 mg PO BEDTIME PRN PRN Reason: Sleep Ondansetron HCl (Ondansetron 4 Mg/2 Ml Sdv) 4 mg IV Q6H PRN PRN Reason: Nausea/Vomiting Ondansetron HCl (Ondansetron 4 Mg Tab.Dis) 4 mg PO Q6H PRN PRN Reason: Nausea able to take PO Pantoprazole Sodium (Pantoprazole 40 Mg Tab.Cr) 40 mg PO ACBREAKFAST [facility] Last Admin: 05/22/21 08:08 Dose: 40 mg Documented by: Senna/Docusate Sodium (Docusate Sodium/Sennosides 50-8.6 Mg Tab) 1 tab PO BID PRN PRN Reason: Constipation Discontinued Medications Remdesivir 200 mg/ Sodium (Chloride) 250 mls @ 250 mls/hr IV ONETIME ONE Stop: 05/19/21 17:59 Last Admin: 05/19/21 18:21 Dose: 250 mls/hr Documented by: - Exam General: Alert, Oriented, No Acute Distress HEENT: Pupils Equal, EOMI, Mucous Membr. Moist/[place] Neck: Supple, Trachea Midline Lungs: Rhonchi (More on the left than the right), Wheezing Cardiovascular: Regular Rate, Regular Rhythm GI/Abdominal Exam: Normal Bowel Sounds, Soft, Non-Tender, No Distention Extremities: Normal Inspection, Non-Tender, No Pedal Edema Skin: Warm, Dry, Intact Neurological: No New Focal Deficit Psy/Mental Status: Alert, Normal Affect, Agitated - Patient Data Lab Results Last 24 hrs: Laboratory Results - last 24 hr 05/22/21 05/22/21 Range/Units 04:30 04:30 WBC 7.7 (4.5-11.0) K/uL RBC 4.86 (4.30-5.90) M/uL Hgb 11.8 L (12.0-15.0) g/dL Hct 37.0 L (40.0-54.0) % MCV 76 L (80-98) fL MCH 24 L (27-31) pg MCHC 32 (32-36) % Plt Count 233 (150-400) K/uL Sodium 139 L (140-148) mmol/L Potassium 3.7 (3.6-5.2) mmol/L Chloride 103 (100-108) mmol/L Carbon Dioxide 22 (21-32) mmol/L Anion Gap 17.7 H (5.0-14.0) mmol/L BUN 30 H (7-18) mg/dL Creatinine 0.9 (0.8-1.3) mg/dL Est Cr Clr Drug Dosing 82.95 mL/min Estimated GFR (MDRD) > 60 (>60) Glucose 138 H (74-106) mg/dL Calcium 8.0 L (8.5-10.1) mg/dL Total Bilirubin 0.2 (0.2-1.0) mg/dL AST 58 H (15-37) U/L ALT 76 (12-78) U/L Alkaline Phosphatase 65 (46-116) U/L Total Protein 6.4 (6.4-8.2) g/dL Albumin 2.0 L (3.4-5.0) g/dL Globulin 4.4 H (2.3-3.5) g/dL Albumin/Globulin Ratio 0.5 L (1.2-2.2) Result Diagrams: 05/22/21 04:30 05/22/21 04:30 Sepsis Event Note - Evaluation Sepsis Screening Result: No Definite Risk - Focused Exam Vital Signs: Vital Signs Temp Pulse Resp BP Pulse Ox 05/22/21 19:26 97.7 F 58 L 16 155/95 H 95 05/22/21 15:17 97.7 F 64 16 135/84 94 L 05/22/21 13:44 95 05/22/21 11:34 96.9 F 55 L 16 134/89 91 L - Problem List & Annotations (1) COVID-19 SNOMED Code(s): 349245659 Code(s): U07.1 - COVID-19 Status: Acute Current Visit: Yes (2) History of CVA (cerebrovascular accident) without residual deficits Status: Chronic Current Visit: Yes - Problem List Review Problem List Initiated/Reviewed/Updated: Yes - Plan Plan:: ASSESSMENT AND PLAN - COVID-19 pneumonia-complicated by acute respiratory failure with hypoxia. Currently requiring 2.5 L of oxygen. Clinically he looks well. Declined labs this morning. We did discuss the importance of monitoring his clinical status with laboratory studies. He was agreeable to every other day. -Dexamethasone 6 mg every 24 hours (day3)-missed today's dose currently does not have IV access -Remdesivir x5 days-missed today's dose currently does not have IV access -Enoxaparin every 24 hours -Symptomatic management of cough -Supplement oxygen, wean as able -Covid isolation (positive test Oct 1) History of cerebrovascular disease-history of a stroke that was quite debilitating and left him with speech difficulties and right-sided weakness. He has been a resident at the assisted living since his stroke. He does not want to go back to his assisted living facility after the hospital stay. -Medical management Maintenance issues - -DVT prophylaxis-enoxaparin -GI prophylaxis-PPI -Nutrition-mechanical soft Disposition -we will contact anesthesia to place a IV and get him his last 2 doses of remdesivir along with dexamethasone. Once he has received these will then monitor for decrease in oxygenation needs to anticipate discharge, they did decrease by half from yesterday. Aileen Sousa,
[2021-05-23] MEDS: Pantoprazole 40 MG Tab.CR PO SCH ×2 (07:51→07:54)
[2021-05-23] MEDS: Gabapentin 100 MG Cap PO SCH ×4 (07:51→21:55)
[2021-05-23] MEDS: Dexamethasone 4 MG/ML SDV IVPUSH SCH (16:13)
[2021-05-23] MEDS: Enoxaparin 40 MG/0.4 ML Syringe SUBCUT SCH (16:14)
[2021-05-23] MEDS: REMDESIVIR 100 MG in Sodium Chloride 0.9% 100 ML IV SCH (17:09)
--- NOTE | 2021-05-23 20:49 | PCM.PN ---
- General Info Date of Service: 05/23/21 Admission Dx/Problem (Free Text): Admission Diagnosis/Problem Admission Diagnosis/Problem Pneumonia Subjective Update: Mr. Deleon is doing well today. His only complaint was that he was cold. He did complete his doses of remdesivir today. He may be ready for discharge in the next day or 2. Functional Status: Reports: Tolerating Diet. Denies: New Symptoms - Review of Systems General: Reports: No Symptoms HEENT: Reports: No Symptoms Pulmonary: Reports: No Symptoms Cardiovascular: Reports: No Symptoms Gastrointestinal: Reports: No Symptoms Genitourinary: Reports: No Symptoms Musculoskeletal: Reports: No Symptoms Skin: Reports: No Symptoms Neurological: Reports: No Symptoms Psychiatric: Reports: No Symptoms - Patient Data Vitals - Most Recent: Last Vital Signs Temp 97.6 F 05/23/21 19:31 Pulse 57 L 05/23/21 19:31 Resp 18 05/23/21 19:31 BP 138/92 H 05/23/21 19:31 Pulse Ox 98 05/23/21 19:34 Weight - Most Recent: 150 lb 0.005 oz I&O - Last 24 Hours: Intake & Output 05/23/21 05/23/21 05/23/21 06:59 14:59 22:59 Intake Total 300 Balance 300 Med Orders - Current: Current Medications Acetaminophen (Acetaminophen 325 Mg Tab) 650 mg PO Q4H PRN PRN Reason: Pain (Mild 1-3)/fever Last Admin: 05/21/21 13:43 Dose: 650 mg Documented by: Baclofen (Baclofen 10 Mg Tab) 10 mg PO BEDTIME [facility] Last Admin: 05/22/21 21:11 Dose: 10 mg Documented by: Benzonatate (Benzonatate 100 Mg Cap) 100 mg PO TID PRN PRN Reason: Cough Dexamethasone (Dexamethasone 4 Mg/Ml Sdv) 6 mg IVPUSH Q24H [facility] Last Admin: 05/23/21 16:13 Dose: 6 mg Documented by: Enoxaparin Sodium (Enoxaparin 40 Mg/0.4 Ml Syringe) 40 mg SUBCUT Q24H [facility] Last Admin: 05/23/21 16:14 Dose: 40 mg Documented by: Gabapentin (Gabapentin 100 Mg Cap) 100 mg PO TID [facility] Last Admin: 05/23/21 14:49 Dose: Not Given Documented by: Guaifenesin/Dextromethorphan (Guaifenesin/Dextromethorphan 100-10 Mg/5 Ml Soln 10 Ml Cup) 10 ml PO Q4H PRN PRN Reason: Cough Loperamide HCl (Loperamide 2 Mg Cap) 2 mg PO Q6H PRN PRN Reason: Diarrhea Lorazepam (Lorazepam 2 Mg/Ml Sdv) 0.5 mg IVPUSH Q4H PRN PRN Reason: Nausea/Vomiting Magnesium Hydroxide (Magnesium Hydroxide 400 Mg/5 Ml Susp 30 Ml Cup) 30 ml PO Q12H PRN PRN Reason: Constipation Melatonin (Melatonin 3 Mg Tab) 9 mg PO BEDTIME PRN PRN Reason: Sleep Ondansetron HCl (Ondansetron 4 Mg/2 Ml Sdv) 4 mg IV Q6H PRN PRN Reason: Nausea/Vomiting Ondansetron HCl (Ondansetron 4 Mg Tab.Dis) 4 mg PO Q6H PRN PRN Reason: Nausea able to take PO Pantoprazole Sodium (Pantoprazole 40 Mg Tab.Cr) 40 mg PO ACBREAKFAST [facility] Last Admin: 05/23/21 07:54 Dose: Not Given Documented by: Senna/Docusate Sodium (Docusate Sodium/Sennosides 50-8.6 Mg Tab) 1 tab PO BID PRN PRN Reason: Constipation Discontinued Medications Remdesivir 100 mg/ Sodium (Chloride) 100 mls @ 100 mls/hr IV Q24H [facility] Stop: 05/23/21 17:59 Last Admin: 05/23/21 17:09 Dose: 100 mls/hr Documented by: Remdesivir 200 mg/ Sodium (Chloride) 250 mls @ 250 mls/hr IV ONETIME ONE Stop: 05/19/21 17:59 Last Admin: 05/19/21 18:21 Dose: 250 mls/hr Documented by: - Exam General: Alert, Cooperative, No Acute Distress HEENT: Pupils Equal, EOMI, Mucous Membr. Moist/[place] Neck: Supple, Trachea Midline Lungs: Clear to Auscultation, Normal Respiratory Effort Cardiovascular: Regular Rate, Regular Rhythm GI/Abdominal Exam: Normal Bowel Sounds, Soft, Non-Tender, No Distention Extremities: Normal Inspection, Non-Tender, No Pedal Edema Skin: Warm, Dry, Intact Neurological: No New Focal Deficit Psy/Mental Status: Alert, Normal Affect, Normal Mood - Patient Data Result Diagrams: 05/22/21 04:30 05/22/21 04:30 Sepsis Event Note - Evaluation Sepsis Screening Result: No Definite Risk - Focused Exam Vital Signs: Vital Signs Temp Pulse Resp BP Pulse Ox 05/23/21 19:34 98 05/23/21 19:31 97.6 F 57 L 18 138/92 H 05/23/21 16:10 97.6 F 62 20 139/92 H 94 L 05/23/21 13:24 91 L 05/23/21 10:40 97.6 F 70 18 148/76 H 92 L - Problem List & Annotations (1) COVID-19 SNOMED Code(s): 811076858 Code(s): U07.1 - COVID-19 Status: Acute Current Visit: Yes (2) History of CVA (cerebrovascular accident) without residual deficits Status: Chronic Current Visit: Yes - Problem List Review Problem List Initiated/Reviewed/Updated: Yes - Plan Plan:: ASSESSMENT AND PLAN - COVID-19 pneumonia-complicated by acute respiratory failure with hypoxia. No l onger requiring supplemental oxygen. Clinically he looks well. He is getting labs every other day. -Dexamethasone 6 mg every 24 hours -Remdesivir x5 days was completed today -Enoxaparin every 24 hours -Symptomatic management of cough -Supplement oxygen, wean as able -Covid isolation (positive test Oct ) History of cerebrovascular disease-history of a stroke that was quite debilitating and left him with speech difficulties and right-sided weakness. He has been a resident at the assisted living since his stroke. He does not want to go back to his assisted living facility after the hospital stay. -Medical management Maintenance issues - -DVT prophylaxis-enoxaparin -GI prophylaxis-PPI -Nutrition-mechanical soft Plan: Now that he has completed remdesivir he can go back to the assisted living that he was living at I did talk to the patient about this today and he said he wanted to go home home. I talked to him about talking to his family. I will talk with Marva tomorrow about plans on the assisted living facility and when he will be able to return. Aileen Sousa, DO
[2021-05-23] MEDS: Baclofen 10 MG Tab PO SCH (21:55)
[2021-05-24] MEDS: Gabapentin 100 MG Cap PO SCH ×2 (01:44→10:20)
[2021-05-24] MEDS: Baclofen 10 MG Tab PO SCH (01:44)
[2021-05-24] MEDS: Pantoprazole 40 MG Tab.CR PO SCH (07:51)
--- NOTE | 2021-05-29 10:07 | PCM.DCSUM1 ---
Discharge Summary - Hospital Course Free Text/Narrative:: Mr. Deleon is a 60-year-old male with past medical history significant for stroke with residual right-sided weakness and difficulty with word finding, coronary artery disease, hypercholesterolemia, hypertension, and a history of RI presented from his assisted living facility with hypoxia. He had been diagnosed with COVID-19 on May 12 and had increasing symptoms since that time. He had shortness of breath and occasional cough. On arrival to the emergency department his vitals were temp 37.7, pulse 80, respiratory rate 18, BP 143/89, pulse ox 93. His labs were significant for a hemoglobin 11.9, MCV 77, sodium 137, anion gap 18, BUN 26, C-reactive protein 17.63, albumin 2.1, and a D-dimer 2105.86. He had a chest x-ray done that showed patchy bilateral infiltrates compatible with pneumonia. He was treated with dexamethasone, remdesivir, and enoxaparin. He was also treated with supplementary oxygen which he no longer needed at the time of discharge. He was sent home on aspirin 325 mg daily for the next 30 days. He did return to his assisted living facility. I did intake counselor him and encouraged him to continue physical therapy as he is only 1 year out from his stroke and still has the potential to gain more independence in his life. He did is not paralyzed he just has weakness in the right arm and leg. Also his word finding difficulties do seem to improve when he is frustrated and I encouraged him to work with a speech therapist at his facility to improve his ability to express himself over time. Diagnosis: Stroke: No Modified [place] Scale: Sev.Disablility Bedridden,Incont.&Require Constant Nrsg.Care/Attention Modified [place] Scale Score: 5 - Discharge Data Discharge Date: 05/24/21 Discharge Disposition: DC/Tfer to Other Condition: Good - Referral to Home Health Primary Care Physician: PCP None - Discharge Diagnosis/Problem(s) (1) COVID-19 SNOMED Code(s): 233671245 ICD Code: U07.1 - COVID-19 Status: Acute (2) History of CVA with residual deficit SNOMED Code(s): 321117567 ICD Code: I69.30 - UNSPECIFIED SEQUELAE OF CEREBRAL INFARCTION Status: Chronic - Discharge Plan Prescriptions/Med Rec: Aspirin 325 mg PO DAILY #30 tablet Home Medications: Home Meds Acetaminophen 650 mg PO Q4H PRN 05/19/21 [History] Baclofen 10 mg PO BEDTIME 05/19/21 [History] Gabapentin [Neurontin] 100 mg PO TID 05/19/21 [History] Loperamide [Imodium] 2 mg PO Q6H PRN 05/19/21 [History] Zinc Oxide [Zinc Oxide 20% Oint] 1 applic TOP ASDIRECTED PRN 05/19/21 [History] Aspirin 325 mg PO DAILY #30 tablet 05/24/21 [Rx] Patient Handouts: COVID-19 Forms: ED Department Discharge - Discharge Summary/Plan Comment DC Time >30 min.: Yes Total # of Minutes for Discharge Time: 35 - General Info Date of Service: 05/24/21 Admission Dx/Problem (Free Text: Admission Diagnosis/Problem Admission Diagnosis/Problem Pneumonia SARS-CoV-2 Subjective Update: Mr. Simmons was doing well on the day of discharge and no longer requiring supplementary oxygen. He had completed his doses of remdesivir. - Review of Systems General: Reports: No Symptoms HEENT: Reports: No Symptoms Pulmonary: Reports: No Symptoms Cardiovascular: Reports: No Symptoms Gastrointestinal: Reports: No Symptoms Genitourinary: Reports: No Symptoms Musculoskeletal: Reports: No Symptoms Skin: Reports: No Symptoms Neurological: Reports: Trouble Speaking, Weakness Psychiatric: Reports: No Symptoms - Patient Data Vitals - Most Recent: Last Vital Signs Temp 97.6 F 05/24/21 10:53 Pulse 56 L 05/24/21 10:53 Resp 16 05/24/21 10:53 BP 141/80 H 05/24/21 10:53 Pulse Ox 95 05/24/21 10:53 Weight - Most Recent: 150 lb 0.005 oz Med Orders - Current: Current Medications Discontinued Medications Acetaminophen (Acetaminophen 325 Mg Tab) 650 mg PO Q4H PRN PRN Reason: Pain (Mild 1-3)/fever Last Admin: 05/21/21 13:43 Dose: 650 mg Documented by: Baclofen (Baclofen 10 Mg Tab) 10 mg PO BEDTIME [facility] Last Admin: 05/24/21 01:44 Dose: Not Given Documented by: Benzonatate (Benzonatate 100 Mg Cap) 100 mg PO TID PRN PRN Reason: Cough Dexamethasone (Dexamethasone 4 Mg/Ml Sdv) 6 mg IVPUSH Q24H [facility] Last Admin: 05/23/21 16:13 Dose: 6 mg Documented by: Enoxaparin Sodium (Enoxaparin 40 Mg/0.4 Ml Syringe) 40 mg SUBCUT Q24H [facility] Last Admin: 05/23/21 16:14 Dose: 40 mg Documented by: Gabapentin (Gabapentin 100 Mg Cap) 100 mg PO TID [facility] Last Admin: 05/24/21 10:20 Dose: Not Given Documented by: Guaifenesin/Dextromethorphan (Guaifenesin/Dextromethorphan 100-10 Mg/5 Ml Soln 10 Ml Cup) 10 ml PO Q4H PRN PRN Reason: Cough Remdesivir 100 mg/ Sodium (Chloride) 100 mls @ 100 mls/hr IV Q24H [facility] Stop: 05/23/21 17:59 Last Admin: 05/23/21 17:09 Dose: 100 mls/hr Documented by: Remdesivir 200 mg/ Sodium (Chloride) 250 mls @ 250 mls/hr IV ONETIME ONE Stop: 05/19/21 17:59 Last Admin: 05/19/21 18:21 Dose: 250 mls/hr Documented by: Loperamide HCl (Loperamide 2 Mg Cap) 2 mg PO Q6H PRN PRN Reason: Diarrhea Lorazepam (Lorazepam 2 Mg/Ml Sdv) 0.5 mg IVPUSH Q4H PRN PRN Reason: Nausea/Vomiting Magnesium Hydroxide (Magnesium Hydroxide 400 Mg/5 Ml Susp 30 Ml Cup) 30 ml PO Q12H PRN PRN Reason: Constipation Melatonin (Melatonin 3 Mg Tab) 9 mg PO BEDTIME PRN PRN Reason: Sleep Ondansetron HCl (Ondansetron 4 Mg/2 Ml Sdv) 4 mg IV Q6H PRN PRN Reason: Nausea/Vomiting Ondansetron HCl (Ondansetron 4 Mg Tab.Dis) 4 mg PO Q6H PRN PRN Reason: Nausea able to take PO Pantoprazole Sodium (Pantoprazole 40 Mg Tab.Cr) 40 mg PO ACBREAKFAST [facility] Last Admin: 05/24/21 07:51 Dose: Not Given Documented by: Senna/Docusate Sodium (Docusate Sodium/Sennosides 50-8.6 Mg Tab) 1 tab PO BID PRN PRN Reason: Constipation - Exam General: Reports: Alert, Oriented HEENT: Reports: Pupils Equal, EOMI, Mucous Membr. Moist/[place] Neck: Reports: Supple Lungs: Reports: Clear to Auscultation, Normal Respiratory Effort Cardiovascular: Reports: Regular Rate, Regular Rhythm GI/Abdominal Exam: Normal Bowel Sounds, Soft, Non-Tender, No Organomegaly, No Distention, No Abnormal Bruit, No Mass, Pelvis Stable Rectal (Males) Exam: Prostate Normal Back Exam: Reports: Normal Inspection Extremities: Normal Inspection, Non-Tender, No Pedal Edema, Other (Right-sided weakness greater in the arm than leg) Skin: Reports: Warm, Dry, Intact Neurological: Reports: No New Focal Deficit, Other (Difficulty with word finding). Denies: Normal Gait, Normal Speech Psy/Mental Status: Reports: Alert, Normal Affect, Normal Mood
== END 2021-05-24 13:00 | disposition other institution (70) | DRG 177 ==
LOC: JP.ED 09:46 → JP.2SS 14:11
PROVIDERS: ADMIT Internal Medicine; ATTEND Internal Medicine
PROC: 3E0333Z Introduction of Anti-inflammatory into Peripheral Vein, Percutaneous Approach (ICD-10-PCS; principal; 2021-05-19)
PROC: XW033E5 Introduction of Remdesivir Anti-infective into Peripheral Vein, Percutaneous Approach, New Technology Group 5 (ICD-10-PCS; 2021-05-19)
PROC: 8E0ZXY6 Isolation (ICD-10-PCS; 2021-05-19)
DX: U07.1 COVID-19 (principal); J12.82 Pneumonia due to coronavirus disease 2019; J96.01 Acute respiratory failure with hypoxia; I69.351 Hemiplegia and hemiparesis following cerebral infarction affecting right dominant side; Z66 Do not resuscitate; I25.10 Atherosclerotic heart disease of native coronary artery without angina pectoris; E78.00 Pure hypercholesterolemia, unspecified; I10 Essential (primary) hypertension; F41.9 Anxiety disorder, unspecified; F32.A Depression, unspecified; Z87.891 Personal history of nicotine dependence; I25.2 Old myocardial infarction; I69.328 Other speech and language deficits following cerebral infarction
CPT/HCPCS: 36415; 71045; 80053; 84484; 85025; 85027; 85379; 86140; 94762; 99285-25; A9270-GY; J1100; J1650; J7050

== ENCOUNTER 2021-05-30 16:03 | Emergency (ER) | payer MEDICAID ==
[2021-05-30] MEDS ORDERED: cefTRIAXone 1 GM in Sodium Chloride 0.9% 50 ML IV ONE ×2 (16:56→17:15)
[2021-05-30] MEDS ORDERED: Sodium Chloride 0.9% 1,000 ML IV SCH (17:00)
--- NOTE | 2021-05-30 18:01 | EDM.PDOC ---
<OfficerDemar - Last Filed: 05/30/21 20:42> ED HPI GENERAL MEDICAL PROBLEM - General Chief Complaint: Respiratory Problem Stated Complaint: medical [facility] Time Seen by Provider: 05/30/21 16:15 - Related Data Allergies Allergy/AdvReac Type Severity Reaction Status Date / Time No Known Allergies Allergy Verified 05/30/21 16:18 Home Meds: Home Meds Acetaminophen 650 mg PO Q4H PRN 05/19/21 [History] Baclofen 10 mg PO BEDTIME 05/19/21 [History] Gabapentin [Neurontin] 100 mg PO TID 05/19/21 [History] Loperamide [Imodium] 2 mg PO Q6H PRN 05/19/21 [History] Zinc Oxide [Zinc Oxide 20% Oint] 1 applic TOP ASDIRECTED PRN 05/19/21 [History] Aspirin 325 mg PO DAILY #30 tablet 05/24/21 [Rx] Amoxicillin/Clavulanate K [Augmentin 400-57 MG/5 ML] 400 mg PO BID 10 Days #100 ml 05/31/21 [Rx] Course - Re-Assessments/Exams Free Text/Narrative Re-Assessment/Exam: 05/30/21 20:42 Took over care from Dr. Haley patient states he is comfortable does not need any interventions at this time, review of records show he does have a POLST which states he is a DNR DNI will follow his wishes Departure - Departure Disposition: DC/Tfer to [facility] Clinical Impression: COVID-19, Low O2 saturation Pneumonia Qualifiers: Pneumonia type: due to unspecified organism Laterality: right Lung location: upper lobe of lung Qualified Code(s): J18.9 - Pneumonia, unspecified organism - Discharge Information Prescriptions: Amoxicillin/Clavulanate K [Augmentin 400-57 MG/5 ML] 400 mg PO BID 10 Days #100 ml Instructions: COVID-19, Community-Acquired Pneumonia, Adult, [id number] Referrals: PCP,Unknown [Primary Care Provider] - Forms: ED Department Discharge Care Plan Goals: Have PCP see patient when rounding at facility. Resume previous home care orders through [facility] oxygen at 2 to 5 L nasal cannula to provide comfort to the patient and relieve dyspnea and hypoxia. Augmentin 1 teaspoon twice daily is ordered to combat possible bacterial pneumonia. Attempted to treat the patient with comfort care goals, consider hospice or end-of-life care. <Mart Lock - Last Filed: 05/31/21 12:30> ED HPI GENERAL MEDICAL PROBLEM - General Source of Information: Reports: Patient, EMS History Limitations: Reports: Physical Impairment (Patient is unable to communicate other than nodding yes and no) - History of Present Illness INITIAL COMMENTS - FREE TEXT/NARRATIVE: 60-year-old male who recently was treated as an inpatient for unvaccinated COVID-19, was discharged back to his assisted living facility and was doing relatively well but then had strokelike symptoms a week ago. He was evaluated in [place] and work-up was found to be negative but he continues to have some increased neurologic deficit from his baseline, particularly more expressive aphasia. He was DNR at that time, they approached the patient about hospice but he actually decided he wanted to refuse hospice and in fact become a full code. Over the past 12 hours he has developed more of a cough and shortness of breath, more hypoxia so he was sent in by ambulance. He arrived with an O2 saturation of 94% but had 10 L on a nonrebreather and was obviously struggling. Frequent cough. He looks very cachectic and unhealthy. Onset: Unknown/Unsure Associated Symptoms: Reports: Confusion, Cough, Malaise, Shortness of Breath, Weakness. Denies: Fever/Chills Past Medical History Cardiovascular History: Reports: CAD, High Cholesterol, Hypertension, [place] Gastrointestinal History: Reports: Other (See Below) Other Gastrointestinal History: Cryptosporidiosis Musculoskeletal History: Reports: Arthritis, Back Pain, Chronic, RA Neurological History: Reports: CVA Psychiatric History: Reports: Anxiety, Depression - Infectious Disease History Infectious Disease History: Reports: Novel Coronavirus Social & Family History - Caffeine Use Caffeine Use: Reports: Coffee, Soda ED ROS GENERAL - Review of Systems Review Of Systems: See Below Constitutional: Reports: Malaise. Denies: Fever, Chills HEENT: Reports: No Symptoms Respiratory: Reports: Shortness of Breath, Cough GI/Abdominal: Reports: Abdominal Pain (Complaining of some abdominal discomfort, waxing and waning) : Reports: No Symptoms Skin: Reports: Pallor Neurological: Reports: Weakness. Denies: Headache ED EXAM, GENERAL - Physical Exam Exam: See Below Exam Limited By: Physical Impairment General Appearance: Alert, Mild Distress Head: Atraumatic Respiratory/Chest: Respiratory Distress (Mild respiratory distress), Rales (Very discrete area of rales heard in the right upper lobe posteriorly) Cardiovascular: Regular Rate, Rhythm. No: Tachycardia GI/Abdominal: Soft, Tender (Reacts with some tenderness diffusely to palpation, no focal tenderness or guarding) Extremities: Other (Cachectic, thin, no peripheral edema) Neurological: Alert, Confused, Other (Right-sided paralysis) Skin Exam: Pallor Course - Vital Signs Last Recorded V/S: Last Vital Signs Temp 97.3 F 05/31/21 09:35 Pulse 77 05/31/21 09:35 Resp 14 05/31/21 09:35 BP 150/88 H 05/31/21 09:35 Pulse Ox 97 05/31/21 09:35 - Orders/Labs/Meds Labs: Laboratory Tests 05/30/21 05/30/21 05/30/21 Range/Units 16:37 16:37 18:01 WBC 22.2 H (4.5-11.0) K/uL RBC 4.76 (4.30-5.90) M/uL Hgb 11.6 L (12.0-15.0) g/dL Hct 36.7 L (40.0-54.0) % MCV 77 L (80-98) fL MCH 24 L (27-31) pg MCHC 32 (32-36) % Plt Count 302 (150-400) K/uL Neut % (Auto) 88.8 H (36-66) % Lymph % (Auto) 3.3 L (24-44) % [place] % (Auto) 7.9 H (2-6) % Eos % (Auto) 0.0 L (2-4) % Baso % (Auto) 0.0 (0-1) % Sodium 141 (140-148) mmol/L Potassium 3.9 (3.6-5.2) mmol/L Chloride 106 (100-108) mmol/L Carbon Dioxide 23 (21-32) mmol/L Anion Gap 12.3 (5.0-14.0) mmol/L BUN 26 H (7-18) mg/dL Creatinine 1.0 (0.8-1.3) mg/dL Est Cr Clr Drug Dosing 74.61 mL/min Estimated GFR (MDRD) > 60 (>60) Glucose 89 (74-106) mg/dL Lactic Acid 1.0 (0.4-2.0) mmol/L Calcium 8.1 L (8.5-10.1) mg/dL Total Bilirubin 0.6 D (0.2-1.0) mg/dL AST 49 H (15-37) U/L ALT 75 (12-78) U/L Alkaline Phosphatase 95 (46-116) U/L Total Protein 6.1 L (6.4-8.2) g/dL Albumin 1.8 L (3.4-5.0) g/dL Globulin 4.3 H (2.3-3.5) g/dL Albumin/Globulin Ratio 0.4 L (1.2-2.2) Procalcitonin ng/mL 05/30/21 Range/Units 18:14 WBC (4.5-11.0) K/uL RBC (4.30-5.90) M/uL Hgb (12.0-15.0) g/dL Hct (40.0-54.0) % MCV (80-98) fL MCH (27-31) pg MCHC (32-36) % Plt Count (150-400) K/uL Neut % (Auto) (36-66) % Lymph % (Auto) (24-44) % [place] % (Auto) (2-6) % Eos % (Auto) (2-4) % Baso % (Auto) (0-1) % Sodium (140-148) mmol/L Potassium (3.6-5.2) mmol/L Chloride (100-108) mmol/L Carbon Dioxide (21-32) mmol/L Anion Gap (5.0-14.0) mmol/L BUN (7-18) mg/dL Creatinine (0.8-1.3) mg/dL Est Cr Clr Drug Dosing mL/min Estimated GFR (MDRD) (>60) Glucose (74-106) mg/dL Lactic Acid (0.4-2.0) mmol/L Calcium (8.5-10.1) mg/dL Total Bilirubin (0.2-1.0) mg/dL AST (15-37) U/L ALT (12-78) U/L Alkaline Phosphatase (46-116) U/L Total Protein (6.4-8.2) g/dL Albumin (3.4-5.0) g/dL Globulin (2.3-3.5) g/dL Albumin/Globulin Ratio (1.2-2.2) Procalcitonin 3.96 H* ng/mL Meds: Medications Discontinued Medications Generic Name Dose Route Start Last Admin Trade Name Freq PRN Reason Stop Dose Admin Sodium Chloride 1,000 mls @ 1,000 mls/hr 05/30/21 17:00 05/30/21 17:32 Normal Saline IV 1,000 mls/hr ASDIRECTED [facility] Administration Ceftriaxone Sodium 1 gm/ 50 mls @ 100 mls/hr 05/30/21 17:15 05/30/21 17:31 Sodium Chloride IV 05/30/21 17:44 100 mls/hr ONETIME ONE Administration Morphine Sulfate 2 mg 05/30/21 18:46 05/30/21 19:22 Morphine 2 Mg/Ml Syringe IVPUSH 05/30/21 18:47 2 mg ONETIME ONE Administration Morphine Sulfate 2 mg 05/30/21 21:54 05/31/21 05:25 Morphine 2 Mg/Ml Syringe IVPUSH 2 mg Q2H PRN Administration pain/dyspnea - Re-Assessments/Exams Free Text/Narrative Re-Assessment/Exam: 05/30/21 17:59 IV was started, patient was bolused with 1 L of normal saline and a portable chest x-ray was taken which showed a right upper lobe infiltrate. White count was 22,200, this looks more like a bacterial infiltrate than Covid. 1 g of Rocephin was initiated. 05/30/21 18:00 Chemistry panel was reassuring with normal electrolytes. Lactic acid was 1.0. Care was turned over to Officer pending admission Departure - Departure Time of Disposition: 09:51 Sepsis Event Note (ED) - Focused Exam Vital Signs: Vital Signs Temp Pulse Resp BP Pulse Ox 05/31/21 09:35 97.3 F 77 14 150/88 H 97 05/31/21 07:40 96.8 F L 72 21 H 119/83 98 05/31/21 03:30 65 12 120/69 96
[2021-05-30] MEDS ORDERED: Morphine 2 MG/ML SYRINGE IVPUSH ONE (18:46)
[2021-05-30] MEDS: Morphine 2 MG/ML SYRINGE IVPUSH PRN (22:55)
[2021-05-31] MEDS: Morphine 2 MG/ML SYRINGE IVPUSH PRN (05:25)
--- NOTE | 2021-05-31 09:10 | CR ---
CHEST: Portable 05/30/2021 at 4:49 PM CLINICAL HISTORY:Cough, hypoxia COMPARISON:05/19/2021 FINDINGS: Patient has diffuse bilateral predominantly upper lobe infiltrates. These have increased since prior. There is also infiltrate in both infrahilar regions. These are similar to prior study. IMPRESSION: Persistent bilateral pneumonic filtrates Upper lobe infiltrates have increased slightly since prior study
== END 2021-05-31 11:42 ==
LOC: JP.ED 16:03
DX: U07.1 COVID-19 (principal); J12.82 Pneumonia due to coronavirus disease 2019; R09.02 Hypoxemia; I25.10 Atherosclerotic heart disease of native coronary artery without angina pectoris; I10 Essential (primary) hypertension; I25.2 Old myocardial infarction; M06.9 Rheumatoid arthritis, unspecified; Z79.82 Long term (current) use of aspirin; Z79.899 Other long term (current) drug therapy
CPT/HCPCS: 36415; 71045; 80053; 83605; 84145; 85025; 96365; 96375; 96376; 99285; J0696; J2270; J7030

== ENCOUNTER 2021-09-05 13:56 | Inpatient (IN) | payer MEDICAID ==
[2021-09-05 14:49] LABS: CORONAVIRUS COVID-19 NAA POSITIVE (NEGATIVE)
[2021-09-05] MEDS ORDERED: REMDESIVIR 200 MG in Sodium Chloride 0.9% 250 ML IV ONE ×2 (17:22→17:45)
[2021-09-05] MEDS ORDERED: Sodium Chloride 0.9% 10 ML Syringe FLUSH PRN (17:22)
[2021-09-05] MEDS ORDERED: cefTRIAXone 1 GM in Sodium Chloride 0.9% 50 ML IV ONE (17:23)
[2021-09-05] MEDS ORDERED: Dexamethasone 4 MG/ML SDV IVPUSH ONE (17:23)
[2021-09-05] MEDS ORDERED: Doxycycline 100 MG Cap PO SCH (17:30)
[2021-09-05] MEDS ORDERED: Enoxaparin 40 MG/0.4 ML Syringe SUBCUT SCH (19:00)
[2021-09-06] MEDS: Doxycycline 100 MG Cap PO SCH ×2 (09:03→21:45)
[2021-09-06] MEDS ORDERED: Magnesium Hydroxide 400 MG/5 ML Susp 30 ML Cup PO PRN (14:17)
[2021-09-06] MEDS ORDERED: guaiFENesin/Dextromethorphan 100-10 MG/5 ML Soln 10 ML Cup PO PRN (14:17)
[2021-09-06] MEDS ORDERED: Ondansetron 4 MG/2 ML SDV IV PRN (14:17)
[2021-09-06] MEDS ORDERED: Ondansetron 4 MG Tab.DIS PO PRN (14:17)
[2021-09-06] MEDS ORDERED: LORazepam 0.5 MG Tab PO PRN (14:17)
[2021-09-06] MEDS ORDERED: Albuterol 8 GM Inhaler INH PRN (14:17)
[2021-09-06] MEDS ORDERED: Acetaminophen 325 MG Tab PO PRN (14:17)
[2021-09-06] MEDS ORDERED: Benzonatate 100 MG Cap PO PRN (14:17)
[2021-09-06] MEDS: Gabapentin 100 MG Cap PO SCH ×2 (16:35→21:45)
[2021-09-06] MEDS: Acetaminophen 325 MG Tab PO SCH ×2 (16:35→21:45)
[2021-09-06] MEDS: cefTRIAXone 1 GM in Sodium Chloride 0.9% 50 ML IV SCH (16:36)
[2021-09-06] MEDS: Baclofen 10 MG Tab PO SCH ×2 (16:36→21:45)
[2021-09-06] MEDS: Dexamethasone 4 MG/ML SDV IVPUSH SCH (18:26)
[2021-09-06] MEDS: REMDESIVIR 100 MG in Sodium Chloride 0.9% 100 ML IV SCH (18:27)
[2021-09-06] MEDS: Enoxaparin 40 MG/0.4 ML Syringe SUBCUT SCH (18:31)
[2021-09-06] MEDS: Lactobacillus Rhamnosus GG (Probiotic) Cap PO SCH (21:45)
[2021-09-06] MEDS: guaiFENesin 600 MG Tab.ER PO SCH (21:45)
[2021-09-07] MEDS: Melatonin 3 MG Tab PO PRN (00:20)
[2021-09-07] MEDS: LORazepam 2 MG/ML SDV IVPUSH PRN ×2 (03:19→10:22)
[2021-09-07] MEDS: Acetaminophen 325 MG Tab PO SCH ×3 (08:08→21:04)
[2021-09-07] MEDS: Baclofen 10 MG Tab PO SCH ×3 (08:08→21:03)
[2021-09-07] MEDS: Doxycycline 100 MG Cap PO SCH ×2 (08:08→21:04)
[2021-09-07] MEDS: Gabapentin 100 MG Cap PO SCH ×3 (08:08→21:04)
[2021-09-07] MEDS: Lactobacillus Rhamnosus GG (Probiotic) Cap PO SCH ×2 (08:08→21:03)
[2021-09-07] MEDS: guaiFENesin 600 MG Tab.ER PO SCH ×2 (08:09→21:03)
[2021-09-07] MEDS: Aspirin 81 MG Tab.EC PO SCH (08:09)
[2021-09-07] MEDS: cefTRIAXone 1 GM in Sodium Chloride 0.9% 50 ML IV SCH (16:40)
[2021-09-07] MEDS: Enoxaparin 40 MG/0.4 ML Syringe SUBCUT SCH (17:11)
[2021-09-07] MEDS: Dexamethasone 4 MG/ML SDV IVPUSH SCH (17:11)
[2021-09-07] MEDS: REMDESIVIR 100 MG in Sodium Chloride 0.9% 100 ML IV SCH (17:12)
[2021-09-08] MEDS: Aspirin 81 MG Tab.EC PO SCH (08:48)
[2021-09-08] MEDS: Lactobacillus Rhamnosus GG (Probiotic) Cap PO SCH ×2 (08:48→20:59)
[2021-09-08] MEDS: Gabapentin 100 MG Cap PO SCH ×3 (08:48→20:59)
[2021-09-08] MEDS: Acetaminophen 325 MG Tab PO SCH ×3 (08:49→20:59)
[2021-09-08] MEDS: Baclofen 10 MG Tab PO SCH ×3 (08:49→20:59)
[2021-09-08] MEDS: guaiFENesin 600 MG Tab.ER PO SCH ×2 (08:49→21:00)
[2021-09-08] MEDS: Doxycycline 100 MG Cap PO SCH ×2 (08:50→20:59)
[2021-09-08] MEDS: REMDESIVIR 100 MG in Sodium Chloride 0.9% 100 ML IV SCH (16:03)
[2021-09-08] MEDS: cefTRIAXone 1 GM in Sodium Chloride 0.9% 50 ML IV SCH (17:24)
[2021-09-08] MEDS: Dexamethasone 2 MG Tab PO SCH (17:25)
[2021-09-08] MEDS: Enoxaparin 40 MG/0.4 ML Syringe SUBCUT SCH (17:25)
[2021-09-09] MEDS: Aspirin 81 MG Tab.EC PO SCH (08:14)
[2021-09-09] MEDS: Lactobacillus Rhamnosus GG (Probiotic) Cap PO SCH ×2 (08:14→20:46)
[2021-09-09] MEDS: Gabapentin 100 MG Cap PO SCH ×3 (08:15→20:47)
[2021-09-09] MEDS: guaiFENesin 600 MG Tab.ER PO SCH ×2 (08:15→20:46)
[2021-09-09] MEDS: Acetaminophen 325 MG Tab PO SCH ×3 (08:15→20:46)
[2021-09-09] MEDS: Baclofen 10 MG Tab PO SCH ×3 (08:15→20:46)
[2021-09-09] MEDS: Doxycycline 100 MG Cap PO SCH ×2 (08:16→20:52)
[2021-09-09] MEDS: REMDESIVIR 100 MG in Sodium Chloride 0.9% 100 ML IV SCH (15:54)
[2021-09-09] MEDS: Dexamethasone 2 MG Tab PO SCH (17:01)
[2021-09-09] MEDS: Enoxaparin 40 MG/0.4 ML Syringe SUBCUT SCH (17:01)
[2021-09-09] MEDS: Cefdinir 300 MG Cap PO SCH (20:52)
[2021-09-09] MEDS: Melatonin 3 MG Tab PO PRN (20:52)
[2021-09-10] MEDS: Baclofen 10 MG Tab PO SCH ×3 (08:53→22:03)
[2021-09-10] MEDS: Acetaminophen 325 MG Tab PO SCH ×3 (08:53→22:03)
[2021-09-10] MEDS: Cefdinir 300 MG Cap PO SCH ×2 (08:53→22:03)
[2021-09-10] MEDS: Doxycycline 100 MG Cap PO SCH ×2 (08:53→22:04)
[2021-09-10] MEDS: Lactobacillus Rhamnosus GG (Probiotic) Cap PO SCH ×2 (08:53→22:03)
[2021-09-10] MEDS: Gabapentin 100 MG Cap PO SCH ×3 (08:54→22:03)
[2021-09-10] MEDS: guaiFENesin 600 MG Tab.ER PO SCH ×2 (08:54→22:03)
[2021-09-10] MEDS: Aspirin 81 MG Tab.EC PO SCH (08:54)
[2021-09-10] MEDS: Enoxaparin 40 MG/0.4 ML Syringe SUBCUT SCH (17:35)
[2021-09-10] MEDS: Dexamethasone 2 MG Tab PO SCH (17:36)
[2021-09-10] MEDS: Melatonin 3 MG Tab PO PRN (22:19)
[2021-09-11] MEDS: Acetaminophen 325 MG Tab PO SCH ×2 (08:20→13:45)
[2021-09-11] MEDS: Doxycycline 100 MG Cap PO SCH (08:20)
[2021-09-11] MEDS: Cefdinir 300 MG Cap PO SCH (08:20)
[2021-09-11] MEDS: Baclofen 10 MG Tab PO SCH ×2 (08:20→13:45)
[2021-09-11] MEDS: Gabapentin 100 MG Cap PO SCH ×2 (08:20→13:45)
[2021-09-11] MEDS: Aspirin 81 MG Tab.EC PO SCH (08:20)
[2021-09-11] MEDS: guaiFENesin 600 MG Tab.ER PO SCH (08:20)
[2021-09-11] MEDS: Lactobacillus Rhamnosus GG (Probiotic) Cap PO SCH (08:20)
== END 2021-09-11 16:30 | DRG 177 ==
LOC: JP.ED 13:56 → JP.MS 09-06 13:42
PROVIDERS: ADMIT Internal Medicine; ATTEND Internal Medicine
PROC: 8E0ZXY6 Isolation (ICD-10-PCS; principal; 2021-09-06)
PROC: XW033E5 Introduction of Remdesivir Anti-infective into Peripheral Vein, Percutaneous Approach, New Technology Group 5 (ICD-10-PCS; 2021-09-06)
PROC: 3E0333Z Introduction of Anti-inflammatory into Peripheral Vein, Percutaneous Approach (ICD-10-PCS; 2021-09-06)
DX: U07.1 COVID-19 (principal); J12.82 Pneumonia due to coronavirus disease 2019; J96.01 Acute respiratory failure with hypoxia; I69.351 Hemiplegia and hemiparesis following cerebral infarction affecting right dominant side; I25.10 Atherosclerotic heart disease of native coronary artery without angina pectoris; E78.5 Hyperlipidemia, unspecified; I10 Essential (primary) hypertension; F32.A Depression, unspecified; F41.9 Anxiety disorder, unspecified; Z66 Do not resuscitate; Z86.16 Personal history of COVID-19; I25.2 Old myocardial infarction
CPT/HCPCS: 0241U; 36415; 71045; 71045-26; 80053; 80076; 81001; 83605; 83615; 84145; 85025; 85027; 85379; 86140; 87040; 94762; 96365; 96367; 96372; 96375; 99285; 99285-25; A9270-GY; J0248; J0696; J1100; J1650; J2060; J7050; J8540

== ENCOUNTER 2021-10-14 18:18 | Inpatient (IN) | payer MEDICAID ==
[2021-10-14] MEDS ORDERED: Albuterol 0.083% 2.5 MG/3 ML Neb Soln NEB ONE (18:28)
[2021-10-14] MEDS ORDERED: Lidocaine 2% Jelly 10 ML Urojet MUCMEM ONE (19:03)
[2021-10-14] MEDS ORDERED: Iopamidol 755 Mg/ML 100 ML Bottle IV SCH (20:15)
[2021-10-14] MEDS ORDERED: Sodium Chloride 0.9% 100 ML IV SCH (20:15)
[2021-10-14] MEDS ORDERED: Sodium Chloride 0.9% 1,000 ML IV SCH ×2 (20:30→22:33)
[2021-10-14] MEDS: methylPREDNISolone Sodium Succinate 40 MG/1 ML SDV IVPUSH SCH (21:22)
[2021-10-14 22:08] LABS: CORONAVIRUS COVID-19 NAA NEGATIVE (NEGATIVE)
[2021-10-14] MEDS ORDERED: Ampicillin/Sulbactam Na 1.5 GM Vial ONE (22:08)
[2021-10-14] MEDS ORDERED: Sodium Chloride 0.9% 50 ML ONE (22:09)
[2021-10-14] MEDS: Ampicillin/Sulbactam Na 1.5 GM in Sodium Chloride 0.9% 50 ML IV SCH (22:21)
[2021-10-14] MEDS ORDERED: Acetaminophen 325 MG Tab PO PRN (22:33)
[2021-10-14] MEDS ORDERED: Albuterol 0.083% 2.5 MG/3 ML Neb Soln NEB PRN (22:33)
[2021-10-14] MEDS ORDERED: Sodium Chloride 0.9% 10 ML Syringe FLUSH PRN (22:33)
[2021-10-14] MEDS ORDERED: Ondansetron 4 MG/2 ML SDV IV PRN (22:33)
[2021-10-14] MEDS: Albuterol/Ipratropium 3.0-0.5 MG/3 ML Neb Soln NEB SCH (23:30)
[2021-10-14] MEDS: Enoxaparin 40 MG/0.4 ML Syringe SUBCUT SCH (23:30)
[2021-10-15] MEDS: Ampicillin/Sulbactam Na 1.5 GM in Sodium Chloride 0.9% 50 ML IV SCH ×4 (04:38→21:18)
[2021-10-15] MEDS: methylPREDNISolone Sodium Succinate 40 MG/1 ML SDV IVPUSH SCH ×3 (04:39→21:18)
[2021-10-15] MEDS: Albuterol/Ipratropium 3.0-0.5 MG/3 ML Neb Soln NEB SCH ×5 (05:16→21:21)
[2021-10-15] MEDS ORDERED: Lidocaine 2% Viscous Solution 15 ML UD ONE (06:47)
[2021-10-15] MEDS ORDERED: Lidocaine 4% Top Soln 50 ML Bottle ONE (06:47)
[2021-10-15] MEDS ORDERED: fentaNYL 100 MCG/2 ML SDV ONE (07:14)
[2021-10-15] MEDS ORDERED: Propofol 200 MG/20 ML SDV ONE (07:14)
[2021-10-15] MEDS ORDERED: Lidocaine 4% Top Soln LTA 4 ML Syringe Kit ONE ×2 (07:15→07:16)
[2021-10-15] MEDS: Gabapentin 100 MG Cap PO SCH ×3 (09:19→21:18)
[2021-10-15] MEDS: Baclofen 10 MG Tab PO SCH ×3 (09:20→21:18)
[2021-10-15] MEDS: Aspirin 81 MG Tab.EC PO SCH (09:20)
[2021-10-15] MEDS: Enoxaparin 40 MG/0.4 ML Syringe SUBCUT SCH (21:18)
[2021-10-16] MEDS: Ampicillin/Sulbactam Na 1.5 GM in Sodium Chloride 0.9% 50 ML IV SCH ×2 (04:03→04:09)
[2021-10-16] MEDS: methylPREDNISolone Sodium Succinate 40 MG/1 ML SDV IVPUSH SCH ×2 (04:04→04:09)
[2021-10-16] MEDS: Albuterol/Ipratropium 3.0-0.5 MG/3 ML Neb Soln NEB SCH ×2 (07:19→10:47)
[2021-10-16] MEDS: Gabapentin 100 MG Cap PO SCH ×2 (08:33→11:18)
[2021-10-16] MEDS: Baclofen 10 MG Tab PO SCH ×2 (08:33→11:18)
[2021-10-16] MEDS: Aspirin 81 MG Tab.EC PO SCH (08:33)
[2021-10-16] MEDS ORDERED: Amoxicillin/Clavulanate K 875-125 MG Tab PO SCH (09:00)
[2021-10-16] MEDS ORDERED: predniSONE 20 MG Tab PO SCH (09:30)
== END 2021-10-16 13:54 | disposition home health service (06) | DRG 177 ==
LOC: JP.ED 18:18 → JP.MS 21:03
PROVIDERS: ADMIT Hospitalist; ATTEND Internal Medicine
PROC: 0BJ08ZZ Inspection of Tracheobronchial Tree, Via Natural or Artificial Opening Endoscopic (ICD-10-PCS; principal; 2021-10-15)
DX: J69.0 Pneumonitis due to inhalation of food and vomit (principal); J96.21 Acute and chronic respiratory failure with hypoxia; I69.354 Hemiplegia and hemiparesis following cerebral infarction affecting left non-dominant side; I25.10 Atherosclerotic heart disease of native coronary artery without angina pectoris; E78.00 Pure hypercholesterolemia, unspecified; I10 Essential (primary) hypertension; R32 Unspecified urinary incontinence; M19.90 Unspecified osteoarthritis, unspecified site; M54.9 Dorsalgia, unspecified; G89.29 Other chronic pain; M06.9 Rheumatoid arthritis, unspecified; F41.9 Anxiety disorder, unspecified; F32.A Depression, unspecified; D64.9 Anemia, unspecified; Z86.16 Personal history of COVID-19; I25.2 Old myocardial infarction; Z99.81 Dependence on supplemental oxygen; Z95.5 Presence of coronary angioplasty implant and graft; Z79.899 Other long term (current) drug therapy; Z79.52 Long term (current) use of systemic steroids; Z79.82 Long term (current) use of aspirin; Z20.822 Contact with and (suspected) exposure to COVID-19
CPT/HCPCS: 0241U; 36415; 71045; 71275; 80053; 81001; 83735; 83880; 85025; 85379; 86140; 87015; 87040; 87070; 87102; 87116; 87186; 87205; 87206; 87220; 92610-GN; 94640; 99222; 99233; 99238; A9270-GY; J0295; J1650; J2704; J2920; J3010; J7030; J7620-GY; Q9967